=== PATIENT | male | born 1945 | race Caucasian/White ===

== ENCOUNTER 2021-07-02 09:22 | Inpatient (IN) | payer MEDICARE, OTHER, SELFPAY ==
[2021-07-02] VITALS (8 sets, daily range): BP systolic 125–172; BP diastolic 70–91; PULSE 57–80; RESP 16–20; TEMP 36.6–37.1; O2SAT 94–98; BMI 41.8; BMI 41.1
--- NOTE | 2021-07-02 | ECG_ITS ---
Test Reason : CP Blood Pressure : / mmHG Vent. Rate : 067 BPM Atrial Rate : 067 BPM P-R Int : 166 ms QRS Dur : 104 ms QT Int : 418 ms P-R-T Axes : -09 -37 011 degrees QTc Int : 441 ms Normal sinus rhythm with sinus arrhythmia Left axis deviation Abnormal ECG When compared with ECG of 09-APR-2018 14:01, No significant change was found Referred By: Generic ED Physician Electronically Signed By:Oswaldo Torres
--- NOTE | ~2021-07-02 | XR_ITS ---
EXAMINATION: XR CHEST CLINICAL INFORMATION: Chest pain COMPARISON: Previous chest x-ray April 2011 TECHNIQUE: 2 views of the chest were obtained. FINDINGS: The cardiac silhouette is slightly enlarged. The thoracic aorta appears tortuous and may be ectatic. Some of these changes may be exaggerated due to apical lordotic film technique. Hilar and mediastinal contours are otherwise unremarkable. The lungs are clear. There is no pleural effusion or pneumothorax. There are degenerative changes of the spine. XR/XR chest 2V IMPRESSION: Slightly enlarged cardiac silhouette and tortuous possibly ectatic thoracic aorta.
--- NOTE | ~2021-07-02 | CT_ITS ---
EXAMINATION: CTA CHEST PE STUDY CLINICAL INFORMATION: Reason for Exam elevated d dimer, cp, +dvt, r/o pe COMPARISON: No pertinent prior studies are available for comparison. TECHNIQUE: Prior to contrast administration, noncontrast localization images were obtained. After the administration of 50 mL of Omnipaque nonionic IV contrast, contiguous thin slice helical images were obtained through the thorax. Reformatted MIP images in the coronal and sagittal planes were obtained at the acquisition workstation. This CT examination was performed using dose optimization techniques as appropriate, variously including the following: *Automated exposure control *Adjustment of mA and/or kV according to patient size (this includes techniques or standardized protocols for targeted exams where dose is matched to indication/reason for exam; i.e. extremities or head) *Use of iterative reconstruction technique DLP: 492 mGy-cm. FINDINGS: The bolus timing on this study was acceptable for visualization of the pulmonary arterial tree. There is a focal filling defects seen within the posterior medial subsegmental pulmonary artery branches consistent with focal pulmonary emboli. No other definitive emboli are seen. Mosaic perfusion enhancement with linear atelectasis in the left lower lobe calcified granuloma. No abnormal pulmonary nodules or masses are appreciated. No significant hilar or mediastinal adenopathy. There is no evidence of pleural effusion or pneumothorax. The heart is normal in size. No evidence of ventricular septal bowing or right heart strain. Vascular calcification within the aorta. Small hiatal hernia.. There is no pericardial effusion or pericardial thickening. Limited evaluation of the upper abdominal viscera is unremarkable. CT/CT angio chest PE protocol IMPRESSION: Filling defects seen within posterior and medial subsegmental left lower lobe pulmonary artery branches consistent with pulmonary emboli. VTE: Positive This critical result was discussed with Sonia Hwang NP at 07/02/2021 6:04 PM and it was ascertained that the content and urgency of the report was understood at the time of direct communication.
--- NOTE | ~2021-07-02 | US_ITS ---
EXAMINATION: US VENOUS ULTRASOUND WITH DOPPLER LOWER EXTREMITY, BILATERAL CLINICAL INFORMATION: Lower extremity cramping, pain, elevated D-dimer. COMPARISON: None TECHNIQUE: Ultrasound of the deep veins is performed from the hip to the calf with compression sonography and color and pulse Doppler assessment. Spectral analysis with color-flow imaging is performed. FINDINGS: RIGHT: There is normal venous compression and respiratory variation and augmented flow. The visualized common femoral vein, superficial femoral vein, profunda femoral vein, popliteal vein, and the trifurcation region shows no evidence of deep venous thrombosis. There is no significant popliteal fossa cyst. There are a few nondistended lymph nodes seen. LEFT: There is normal venous compression and respiratory variation and augmented flow. There are chronic changes in the proximal left greater saphenous vein. The visualized common femoral vein, superficial femoral vein, profunda femoral vein, popliteal vein, and the trifurcation region shows no evidence of deep venous thrombosis. Normal flow and compression seen in the left posterior tibial vein.There is absent flow with noncompression of peroneal vein. There is no significant popliteal fossa cyst. A few scattered lymph nodes are seen in the left groin. If the patient's symptoms persist, follow-up ultrasound in 5 days 7 days might be of value to exclude proximal propagation from a nonvisualized calf vein. US/US venous duplex LE IMPRESSION: No DVT demonstrated in the right lower extremity. Acute DVT left peroneal vein. 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 Rest of the left lower extremity is unremarkable. There are small bilateral lymph nodes in the groin.
[2021-07-02 11:44] LABS: MANUAL DIFF FLAG NO
--- NOTE | 2021-07-02 11:44 | ED.GENADULT ---
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 Patient tells me that due to this his p.o. intake has been decreased. He denies any associated nausea, vomiting, diarrhea, constipation, urinary symptoms, shortness of breath, cough, fevers, chills. His last BM was this morning and normal. He tells me that for 2 days he has had lower leg cramping as well as cramping in his left upper extremity. He feels like the muscles are sore. He denies any injury or trauma. He denies any leg swelling. No history of blood clots. No recent travel or sick contact. He has been vaccinated for COVID Related Data Home Medications Medication Instructions Recorded Confirmed aspirin 81 mg tablet,delayed 1 tab PO QPM 07/02/21 07/02/21 release glipizide 5 mg tablet, extended 1 tab PO DAILY 07/02/21 07/02/21 release 24 hr lisinopril 20 mg tablet 1 tab PO QPM 07/02/21 07/02/21 metformin 1,000 mg tablet 1 tab PO BID 07/02/21 07/02/21 pioglitazone 45 mg tablet 1 tab PO QAM 07/02/21 07/02/21 simvastatin 40 mg tablet 1 tab PO QPM 07/02/21 07/02/21 Allergies Allergy/AdvReac Type Severity Reaction Status Date / Time No Known Allergies Allergy Mild N/A Verified 07/02/21 09:47 Review of Systems Review of Systems: Yes all other systems are reviewed and are negative Constitutional: Constitutional: Reports no additional constitutional complaints, Denies body ache(s), Denies chills, Denies fever(s), Denies headache(s) and Denies weakness Comments: Muscle cramps Eyes: Eyes: Reports no additional eye complaints and Denies change in vision ENT: Reports system reviewed and no additional complaints, except as documented, Denies dizziness, Denies headache(s), Denies nasal congestion, Denies nasal discharge and Denies neck pain Cardiovascular: Cardiovascular: Reports no additional cardiovascular complaints, Reports chest pain, Denies leg edema and Denies dyspnea Respiratory: Respiratory: Reports no additional respiratory complaints, Denies cough and Denies dyspnea Gastrointestinal: Gastrointestinal: Reports no additional gastrointestinal complaints, Reports abdominal pain, Denies diarrhea, Denies nausea and Denies vomiting Genitourinary: Genitourinary: Denies urinary incontinence Musculoskeletal: Musculoskeletal: Reports no additional musculoskeletal complaints, Denies back pain, Denies arthralgias, Denies joint swelling, Denies neck pain, Denies numbness and Denies tingling Integumentary/Breasts: Skin/Breast: Reports system reviewed and no additional complaints, except as docu and Denies rash Neurologic: Reports system reviewed and no additional complaints, except as documented, Denies Abnormal speech present, Denies dizziness, Denies headache(s), Denies numbness, Denies tingling and Denies weakness PMFSH Past Medical History Attestation statement: The following information was validated with the patient. Source: old records reviewed and nursing notes reviewed Medical History (Updated 07/02/21 @ 19:05 by Grecia Chatterjee NP) Diabetes High cholesterol Hypertension Social History Social History Alcohol intake: former Patient Tobacco Use Status: Never used Tobacco Use of substances other than those prescribed or required for medical reasons: No Advance Directives: Yes Advance Directives Information Provided: Yes Advance Directives on File: No Physical Exam Vital Signs: Vital Signs: Last Vital Signs Temp 98.0 F 07/02/21 16:00 Pulse 60 07/02/21 18:22 Resp 16 07/02/21 18:22 BP 149/82 H 07/02/21 18:22 Pulse Ox 95 07/02/21 18:22 Body Mass Index 41.8 Const: General: cooperative, healthy appearing, comfortable and no acute distress Orientation/consciousness: patient oriented x3 Limitations: no limitations HENMT: Head: Yes normal to inspection Ears: hearing grossly normal bilaterally and TM's normal bilaterally General nose exam: Normal external nose present Face and sinus: Yes normal facial exam Mouth: Normal oral and palatal mucosa present Throat: Yes posterior oropharynx normal, Yes tonsils normal and Yes uvula midline Eyes: General: appearance normal, both eyes and all related structures Pupils: Equal, round and reactive pupils present Neck: Neck: Yes normal visual inspection Chest: Chest palpation & inspection: normal inspection of the chest Resp: Effort & Inspection: normal respiratory effort Auscultation: clear to auscultation bilaterally Cardio: Rate: regular rate Rhythm: regular rhythm Peripheral pulses: Peripheral pulses 2+ throughout GI: Inspection: Yes normal to inspection Palpation (GI): Soft to palpation and Tenderness to palpation present (GI) (Epigastric is mildly tender no rebound or guarding) Auscultation: normal bowel sounds Back/Spine/Pelvis: Thoracic/Lumbar Spine: thoracic and lumbar spine normal to inspection Skin: General skin exam: no rashes or lesions noted Neuro: General: patient oriented x3, no focal motor deficits and normal sensation to monofilament Cranial nerves: Yes Equal, round and reactive pupils present, Yes Bilaterally intact EOM present, Yes Nystagmus not present, Yes Normal facial strength present and Yes Midline tongue present Cognition (Neuro): normal cognition Speech: No Abnormal speech present Gait exam (Neuro): Normal gait present Motor exam (neuro): 5/5 motor strength present throughout Sensory Exam: Normal double simultaneous stimulation for sensation Extrem: Other: Tenderness to both bilateral calves with no swelling or erythema. Palpable distal pulses noted. Tenderness to the left upper extremity entirely over the forearm and shoulder and upper arm with full range of motion no swelling or erythema. Palpable distal pulses noted General: Yes normal to inspection and Yes no pedal edema Course Course Course Narrative: 75-year-old male here with complaints of intermittent upper abdominal pain which radiates to this chest described as burning for the last few weeks which occurs after eating. He also reports a decreased p.o. intake secondary to pain. Now for the last few days having muscle aching and cramping and his lower extremities and left upper extremity. Hemodynamically stable. Normal neuro exam. Mildly tender in the epigastric with no rebound or guarding. Will check labs, EKG, UA, chest x-ray, covid screen 1240-Elevated D dimer >1000. Will check LE US to r/o DVT 1657-multiple attempts to reach Radiology to get a report from the patient's ultrasound. Finally and ultrasound report confirms an acute DVT. Patient will need CTA to rule out underlying PE. 1829-CT is concerning for acute pulmonary embolism. No evidence of saddle pulmonary embolism. No evidence of right heart strain. Patient is hemodynamically stable. Discussed with Dr. Mohan attending physician. Plan for Lovenox 1mg/kg SQ. Will need admission. 1944-discussed with Dr. Hairston who accepted patient Medical Decision Making MDM Narrative Medical decision making narrative: Rhabdomyolysis, electrolyte abnormality, ACS, GERD, cholecystitis Medical Records Medical records reviewed: Yes I reviewed the patient's medical records. Lab Data Lab results reviewed: Yes I reviewed the patient's lab results. Result diagrams: 07/02/21 11:39 07/02/21 12:13 Labs: Lab Results 07/02/21 07/02/21 07/02/21 Range/Units 11:39 11:39 11:39 WBC 6.6 (4.8-10.8) X10*3/uL RBC 4.39 L (4.60-5.80) X10*6/uL Hgb 11.9 L (14.0-18.0) g/dl Hct 37.7 L (42-52) % MCV 85.9 (80-98) fL MCH 27.1 (27.0-33.0) pg MCHC 31.6 (31.0-36.0) g/dl RDW 14.6 (11.0-16.0) % Plt Count 174 (160-400) X10*3/uL MPV 11.3 (9.4-12.4) fL Immature Gran % (Auto) 0.2 (0.0-0.4) % Neut % (Auto) 62.5 (45-73) % Lymph % (Auto) 26.7 (20-40) % [place] % (Auto) 7.9 (2-11) % Eos % (Auto) 2.1 (0-4) % Baso % (Auto) 0.6 (0-2) % Lymph # (Auto) 1.8 (1.2-4.9) X10*3/uL [place] # (Auto) 0.5 (0.1-1.2) X10*3/uL Eos # (Auto) 0.1 (0.0-0.4) X10*3/uL Baso # (Auto) 0.0 (0.0-0.2) X10*3/uL Abs Immat Gran (auto) 0.01 (0.00-0.03) X10*3/uL Absolute Neuts (auto) 4.1 (2.0-8.3) X10*3/uL Absolute Nucleated RBC 0.000 (0.0-0.012) X10*3/uL Nucleated RBC % (auto) 0.0 (0.0-0.2) /100WBC PT (9.9-13.0) SEC INR (0.9-1.1) D-Dimer NG/ML Sodium (135-145) mmol/L Potassium (3.3-5.1) mmol/L Chloride (96-108) mmol/L Carbon Dioxide (22-29) mmol/L Anion Gap (12-20) BUN (9-16) mg/dL Creatinine (0.5-1.4) mg/dL Estim Creat Clear Calc Estimated GFR Random Glucose (60-115) mg/dL Calcium (8.4-10.2) mg/dL Magnesium (1.6-2.6) mg/dL Total Bilirubin (0.0-1.0) mg/dL Direct Bilirubin (0.0-0.5) mg/dL AST (5-37) U/L ALT (0-40) U/L Alkaline Phosphatase (39-117) U/L Total Creatine Kinase (38-174) U/L Troponin I High Sens 3.6 (<3.5-35.0) ng/L B-Natriuretic Peptide 19 (<100) pg/mL Total Protein (6.5-8.0) g/dL Albumin (3.5-5.0) g/dL Lipase (8-78) U/L Urine Color Urine Appearance Urine pH (5.0-8.0) Ur Specific [place] (1.005-1.025) Urine Protein (NEG-TRACE) MG/DL Urine Glucose (UA) (NEG) MG/DL Urine Ketones (NEG) MG/DL Urine Blood (NEG) Urine Nitrite (NEG) Ur Leukocyte Esterase (NEG) Coronavirus (PCR) NEGATIVE (Negative) Influenza Type A (PCR) NEGATIVE (Negative) Influenza Type B (PCR) NEGATIVE (Negative) RSV RNA Qual (PCR) NEGATIVE (Negative) 07/02/21 07/02/21 07/02/21 Range/Units 11:51 12:13 12:13 WBC (4.8-10.8) X10*3/uL RBC (4.60-5.80) X10*6/uL Hgb (14.0-18.0) g/dl Hct (42-52) % MCV (80-98) fL MCH (27.0-33.0) pg MCHC (31.0-36.0) g/dl RDW (11.0-16.0) % Plt Count (160-400) X10*3/uL MPV (9.4-12.4) fL Immature Gran % (Auto) (0.0-0.4) % Neut % (Auto) (45-73) % Lymph % (Auto) (20-40) % [place] % (Auto) (2-11) % Eos % (Auto) (0-4) % Baso % (Auto) (0-2) % Lymph # (Auto) (1.2-4.9) X10*3/uL [place] # (Auto) (0.1-1.2) X10*3/uL Eos # (Auto) (0.0-0.4) X10*3/uL Baso # (Auto) (0.0-0.2) X10*3/uL Abs Immat Gran (auto) (0.00-0.03) X10*3/uL Absolute Neuts (auto) (2.0-8.3) X10*3/uL Absolute Nucleated RBC (0.0-0.012) X10*3/uL Nucleated RBC % (auto) (0.0-0.2) /100WBC PT 11.4 (9.9-13.0) SEC INR 1.0 (0.9-1.1) D-Dimer 1021 NG/ML Sodium 136 (135-145) mmol/L Potassium 4.2 (3.3-5.1) mmol/L Chloride 104 (96-108) mmol/L Carbon Dioxide 25 (22-29) mmol/L Anion Gap 11 L (12-20) BUN 20 H (9-16) mg/dL Creatinine 0.86 (0.5-1.4) mg/dL Estim Creat Clear Calc 85.0 Estimated GFR > 60 Random Glucose 103 (60-115) mg/dL Calcium 9.0 (8.4-10.2) mg/dL Magnesium 1.8 (1.6-2.6) mg/dL Total Bilirubin 0.6 (0.0-1.0) mg/dL Direct Bilirubin 0.3 (0.0-0.5) mg/dL AST 17 (5-37) U/L ALT 8 (0-40) U/L Alkaline Phosphatase 93 (39-117) U/L Total Creatine Kinase 152 (38-174) U/L Troponin I High Sens (<3.5-35.0) ng/L B-Natriuretic Peptide (<100) pg/mL Total Protein 6.5 (6.5-8.0) g/dL Albumin 3.6 (3.5-5.0) g/dL Lipase 14 (8-78) U/L Urine Color YELLOW Urine Appearance CLEAR Urine pH 6.0 (5.0-8.0) Ur Specific [place] 1.025 (1.005-1.025) Urine Protein NEG (NEG-TRACE) MG/DL Urine Glucose (UA) NEG (NEG) MG/DL Urine Ketones NEG (NEG) MG/DL Urine Blood NEG (NEG) Urine Nitrite NEG (NEG) Ur Leukocyte Esterase NEG (NEG) Coronavirus (PCR) (Negative) Influenza Type A (PCR) (Negative) Influenza Type B (PCR) (Negative) RSV RNA Qual (PCR) (Negative) Imaging Data Chest x-ray: Attestation: I personally reviewed and interpreted this imaging study as follows: Radiologist's impression: EXAMINATION: XR CHEST CLINICAL INFORMATION: Chest pain COMPARISON: Previous chest x-ray April 2011 TECHNIQUE: 2 views of the chest were obtained. FINDINGS: The cardiac silhouette is slightly enlarged. The thoracic aorta appears tortuous and may be ectatic. Some of these changes may be exaggerated due to apical lordotic film technique. Hilar and mediastinal contours are otherwise unremarkable. The lungs are clear. There is no pleural effusion or pneumothorax. There are degenerative changes of the spine. XR/XR chest 2V IMPRESSION: Slightly enlarged cardiac silhouette and tortuous possibly ectatic thoracic aorta. Venous US: Attestation: I personally reviewed and interpreted this imaging study as follows: Radiologist's impression: IMPRESSION: No DVT demonstrated in the right lower extremity. ? Acute DVT left peroneal vein. 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 Rest of the left lower extremity is unremarkable. ? There are small bilateral lymph nodes in the groin. CT scan - chest: Attestation: I personally reviewed and interpreted this imaging study as follows: Radiologist's impression: [id number] [place] [address] CT Scan Report Signed Patient: Chuy Noble MR#: [id number] : 1945 Acct:[id number] Age/Sex: 75 / M ADM Date: 07/02/21 Loc: [facility].ED Attending Dr: Ordering Physician: GRECIA CHATTERJEE NP Date of Service: 07/02/21 Procedure(s): CT angio chest PE protocol Accession Number(s): [id number] cc: GRECIA CHATTERJEE NP~ EXAMINATION: CTA CHEST PE STUDY CLINICAL INFORMATION: Reason for Exam elevated d dimer, cp, +dvt, r/o pe COMPARISON: No pertinent prior studies are available for comparison.? TECHNIQUE: Prior to contrast administration, noncontrast localization images were obtained. After the administration of 50 mL of Omnipaque nonionic? IV contrast, contiguous thin slice helical images were obtained through the thorax. Reformatted MIP images in the coronal and sagittal planes were obtained at the acquisition workstation. This CT examination was performed using dose optimization techniques as appropriate, variously including the following: *Automated exposure control *Adjustment of mA and/or kV according to patient size (this includes techniques or standardized protocols for targeted exams where dose is matched to indication/reason for exam; i.e. extremities or head) *Use of iterative reconstruction technique DLP: 492 mGy-cm. FINDINGS: The bolus timing on this study was acceptable for visualization of the pulmonary arterial tree. There is a focal filling defects seen within the posterior medial subsegmental pulmonary artery branches consistent with focal pulmonary emboli. No other definitive emboli are seen. Mosaic perfusion enhancement with linear atelectasis in the left lower lobe calcified granuloma. No abnormal pulmonary nodules or masses are appreciated. No significant hilar or mediastinal adenopathy.? There is no evidence of pleural effusion or pneumothorax. The heart is normal in size. No evidence of ventricular septal bowing or right heart strain. Vascular calcification within the aorta. Small hiatal hernia..? There is no pericardial effusion or pericardial thickening. Limited evaluation of the upper abdominal viscera is unremarkable. ECG Data Attestation: I personally reviewed and interpreted this ECG as follows: Interpretation: Normal sinus rhythm with a sinus arrhythmia with a rate of 67, normal IL, normal QRS, QTC 441 Discharge Plan Discharge Clinical Impression: Pulmonary embolism on left, DVT (deep venous thrombosis) Patient Disposition: Admitted As Inpatient
[2021-07-02 11:53] LABS: Basophils Percent Auto 0.6 % (0-2); Eosinophils Absolute Auto 0.1 X10*3/uL (0.0-0.4); Eosinophils Percent Auto 2.1 % (0-4); Hematocrit 37.7 % (42-52); Hemoglobin 11.9 g/dl (14.0-18.0); Imm Gran Abs Auto 0.01 X10*3/uL (0.00-0.03); Imm Gran Pct Auto 0.2 % (0.0-0.4); Lymphocytes Absolute Auto 1.8 X10*3/uL (1.2-4.9); Lymphocytes Percent Auto 26.7 % (20-40); Mean Corpuscular HGB Conc 31.6 g/dl (31.0-36.0); Mean Corpuscular Hemoglobin 27.1 pg (27.0-33.0); Mean Corpuscular Volume 85.9 fL (80-98); Mean Platelet Volume 11.3 fL (9.4-12.4); Monocytes Absolute Auto 0.5 X10*3/uL (0.1-1.2); Monocytes Percent Auto 7.9 % (2-11); Neutrophils Absolute Auto 4.1 X10*3/uL (2.0-8.3); Neutrophils Percent Auto 62.5 % (45-73); Platelet Count 174 X10*3/uL (160-400); Red Blood Count 4.39 X10*6/uL (4.60-5.80); Red Cell Distribution Width 14.6 % (11.0-16.0); White Blood Count 6.6 X10*3/uL (4.8-10.8)
--- NOTE | 2021-07-02 12:00 | PC.NURSE ---
Pt reports chest pain and abd pain x 2 days. also reports leg cramping. Pain worse with eating but no pain at present. Skin pink warm and dry. sinus dixon on tele. at bedside. Last BM today. IV established and labs sent. Breathing equal and unlabored. neuros are intact. speech is clear.
[2021-07-02 12:05] LABS: Glucose Urine UA NEG (NEG); Leukocyte Esterase Urine NEG (NEG); Nitrite Urine NEG (NEG); Specific Gravity - Urine 1.025 (1.005-1.025); Urine Blood NEG (NEG); Urine Ketones NEG (NEG); Urine Protein NEG (NEG-TRACE)
[2021-07-02 12:07] LABS: Appearance Urine CLEAR; Color Urine YELLOW
[2021-07-02 12:24] LABS: Troponin-I High Sensitivity 3.6 ng/L (<3.5-35.0)
[2021-07-02 12:31] LABS: D Dimer 1021 NG/ML
[2021-07-02 12:48] LABS: Alanine Aminotransferase 8 U/L (0-40); Albumin Level 3.6 g/dL (3.5-5.0); Alkaline Phosphatase 93 U/L (39-117); Anion Gap 11 (12-20); Aspartate Amino Transferase 17 U/L (5-37); Bilirubin Direct 0.3 mg/dL (0.0-0.5); Bilirubin Total 0.6 mg/dL (0.0-1.0); Blood Urea Nitrogen 20 mg/dL (9-16); Carbon Dioxide 25 mmol/L (22-29); Chloride 104 mmol/L (96-108); Estimated Glomerular Filt Rate > 60; Glucose Random 103 mg/dL (60-115); Lipase 14 U/L (8-78); Magnesium 1.8 mg/dL (1.6-2.6); Potassium 4.2 mmol/L (3.3-5.1); Sodium 136 mmol/L (135-145); Total Protein 6.5 g/dL (6.5-8.0)
[2021-07-02 13:13] LABS: Prothrombin Time 11.4 SEC (9.9-13.0)
[2021-07-02 13:22] LABS: Influenza A PCR NEGATIVE (Negative); Influenza B PCR NEGATIVE (Negative); Resp Syncy Virus RNA Qual PCR NEGATIVE (Negative); SARS COV2 PCR INHOUSE NEGATIVE (Negative)
[2021-07-02 13:37] LABS: B Type Natriuretic Peptide 19 pg/mL (<100)
[2021-07-02] MEDS: Magnesium Hydrox/Alum Hydrox 30 ML ORAL.SUSP PO (14:34)
[2021-07-02] MEDS: Lidocaine HCl Viscous 2 % 15 ML SOLUTION MUCOUS MEM (14:34)
--- NOTE | 2021-07-02 14:36 | PC.NURSE ---
pt resting quietly, denies pain at this time. Medicated as charted
[2021-07-02] MEDS: iohexoL 350 MG/ML 100 ML INFUS..BTL IV (17:50)
[2021-07-02] MEDS: Enoxaparin Sodium 100 MG/ML SYRINGE 110 MG SUBCUT (18:26)
--- NOTE | 2021-07-02 18:27 | PC.NURSE ---
Placed on 2lpm via nc, sat 94-96% on RA, pt denies pain or SOB at this tie. medicated as charted. Plan for admission. NSR on tele
--- NOTE | 2021-07-02 18:45 | PC.NURSE ---
PER Mando MARQUEZ new order for coags at 1830 not to be drawn
--- NOTE | 2021-07-02 20:20 | PM.IMHP ---
History of Present Illness Date of Service: 07/02/21 Chief Complaint: Chest discomfort 75-year-old male with a past medical history of hypertension, hyperlipidemia, diabetes presented to the hospital with a chief complaint of abdominal discomfort. Patient reported that the past days he has been having abdominal discomfort assist with nausea; also complains of chest discomfort; attributes to possible chest discomfort. Complains of mild shortness of breath. Denies any fever chills cough. Denies any palpitations, lightheadedness or dizziness. Patient also complains bilateral leg cramps going on for past few days. Denies any numbness tingling. Denies any GI or symptoms. Review of all other systems is negative except mentioned above ER course: Per ER team patient exam was fairly benign; lung exam was clear; patient by venous duplex of the bilateral lower extremities showed left leg acute DVT in the peroneal vein; CT chest showed left lower lobe pulmonary embolism; patient given Lovenox admitted to the hospital further management PMFSH Medical History (Updated 07/03/21 @ 14:08 by Jake Rivera MD) Diabetes High cholesterol Hypertension Social History Household Members: Spouse Housing: House Do you presently have visiting nurse or other home services: No Alcohol intake: former Patient Tobacco Use Status: Never used Tobacco Use of substances other than those prescribed or required for medical reasons: No Currently Displaying Signs/Symptoms of Drug Intoxication Withdrawal: No Have you been hit, kicked, punched, or otherwise hurt by someone within the past year? If so, by whom?: No Do you feel safe in your current relationship?: Yes Is there a partner from a previous relationship who is making you feel unsafe now?: No Are you made to feel afraid or neglected: No Advance Directives: Yes Advance Directives Information Provided: Yes Advance Directives on File: No Advance Directives Date on File: 07/02/21 Do you have thoughts of harming others: None Do you have a plan to hurt others: No Plan Recently lost weight without trying: Unsure Eating poorly because of decreased appetite: No Nutrition Risks: No Nutritional Risk Poor oral hygiene: No Current occupational status: retired Meds Allergies Allergy/AdvReac Type Severity Reaction Status Date / Time No Known Allergies Allergy Mild N/A Verified 07/02/21 09:47 Active Medications: Current Medications Generic Name Dose Route Start Last Admin Trade Name Jamie PRN Reason Stop Dose Admin Acetaminophen 650 mg 07/02/21 20:15 Acetaminophen 325 Mg Tablet PO Q6H PRN Pain, Mild (Pain Scale 1-3) Albuterol/Ipratropium 3 ml 07/02/21 20:15 Albuterol/Iprat 2.5/0.5mg 3 Ml Ampul.Neb INHALE RQ4H PRN Shortness of Breath/Wheezing Aspirin 81 mg 07/02/21 20:30 Aspirin Enteric Coated 81 Mg Tablet.Dr PO QPM [facility] Dextrose 25 gm 07/02/21 20:15 Dextrose 50 % 25 Gm/50 Ml Vial IVPUSH Q15M PRN per Hypoglycemia Standing Ord. Protocol Enoxaparin Sodium 110 mg 07/02/21 21:00 Enoxaparin Sodium 120 Mg/0.8 Ml Syringe 1 mg/kg (110 mg) SUBCUT Q12H [facility] Famotidine 20 mg 07/02/21 21:00 Famotidine 20 Mg Tablet PO BID [facility] Glucose 15 gm 07/02/21 20:15 Glucose Gel 15 Gm Gel..Gram. PO Q15M PRN per Hypoglycemia Standing Ord. Protocol Insulin Human Lispro 0 unit 07/02/21 21:00 Insulin Lispro 100 Unit/Ml 3 Ml Vial SUBCUT QIDAS [facility] Protocol Lisinopril 20 mg 07/02/21 21:00 Lisinopril 20 Mg Tablet PO QPM [facility] Protocol Melatonin 6 mg 07/02/21 20:15 Melatonin 3 Mg Tablet PO BEDTIME PRN Insomnia Non-Formulary Medication 1 tab 07/02/21 20:30 Simvastatin PO QPM [facility] Oxycodone HCl 5 mg 07/02/21 20:15 Oxycodone Hcl Immed Release 5 Mg Tablet PO Q6H PRN Pain, Severe (Pain Scale 7-10) Pharmacy Consult 1 each 07/02/21 18:04 Consult Rx Perform Med Rec MISCELLANE ONCE PRN Consult order Sodium Chloride 3 ml 07/03/21 00:00 0.9 % Sodium Chloride Flush 3 Ml Syringe IVFLUSH QSHIFT [facility] Home Medications Medication Instructions Recorded Confirmed Last Taken Type aspirin 81 mg tablet,delayed 1 tab PO QPM 07/02/21 07/02/21 07/01/21 History release glipizide 5 mg tablet, extended 1 tab PO DAILY 07/02/21 07/02/21 07/01/21 History release 24 hr lisinopril 20 mg tablet 1 tab PO QPM 07/02/21 07/02/21 07/01/21 History metformin 1,000 mg tablet 1 tab PO BID 07/02/21 07/02/21 07/01/21 History pioglitazone 45 mg tablet 1 tab PO QAM 07/02/21 07/02/21 07/01/21 History simvastatin 40 mg tablet 1 tab PO QPM 07/02/21 07/02/21 Unknown History Physical Exam Vital Signs and Narrative: Vital Signs: Last Vital Signs Temp 98.0 F 07/02/21 16:00 Pulse 60 07/02/21 18:22 Resp 16 07/02/21 18:22 BP 149/82 H 07/02/21 18:22 Pulse Ox 95 07/02/21 18:22 Body Mass Index 41.8 Gen: Appears be in no acute distress HEENT: NCAT, Moist mucosa. Pulmonary: Vesicular breath sounds, fair air entry CVS: Normal S1-S2 Abdomen: BS+, Soft, Nontender Extremities: Warm well perfused Neuro: Alert and awake. Results Labs CBC and Chem 7: 07/04/21 05:17 07/04/21 05:17 Labs: Laboratory Results - last 24 hr 07/02/21 07/02/21 07/02/21 11:39 11:39 11:39 MCV 85.9 MCH 27.1 MCHC 31.6 RDW 14.6 Plt Count 174 MPV 11.3 Immature Gran % (Auto) 0.2 Neut % (Auto) 62.5 Lymph % (Auto) 26.7 [place] % (Auto) 7.9 Eos % (Auto) 2.1 Baso % (Auto) 0.6 Lymph # (Auto) 1.8 [place] # (Auto) 0.5 Eos # (Auto) 0.1 Baso # (Auto) 0.0 Abs Immat Gran (auto) 0.01 Absolute Neuts (auto) 4.1 Absolute Nucleated RBC 0.000 Nucleated RBC % (auto) 0.0 PT INR D-Dimer Anion Gap Estim Creat Clear Calc Estimated GFR Random Glucose Calcium Magnesium Total Bilirubin Direct Bilirubin AST ALT Alkaline Phosphatase Total Creatine Kinase Troponin I High Sens 3.6 B-Natriuretic Peptide 19 Total Protein Albumin Lipase Urine Color Urine Appearance Urine pH Ur Specific [place] Urine Protein Urine Glucose (UA) Urine Ketones Urine Blood Urine Nitrite Ur Leukocyte Esterase Coronavirus (PCR) NEGATIVE Influenza Type A (PCR) NEGATIVE Influenza Type B (PCR) NEGATIVE RSV RNA Qual (PCR) NEGATIVE 07/02/21 07/02/21 07/02/21 11:51 12:13 12:13 MCV MCH MCHC RDW Plt Count MPV Immature Gran % (Auto) Neut % (Auto) Lymph % (Auto) [place] % (Auto) Eos % (Auto) Baso % (Auto) Lymph # (Auto) [place] # (Auto) Eos # (Auto) Baso # (Auto) Abs Immat Gran (auto) Absolute Neuts (auto) Absolute Nucleated RBC Nucleated RBC % (auto) PT 11.4 INR 1.0 D-Dimer 1021 Anion Gap 11 L Estim Creat Clear Calc 85.0 Estimated GFR > 60 Random Glucose 103 Calcium 9.0 Magnesium 1.8 Total Bilirubin 0.6 Direct Bilirubin 0.3 AST 17 ALT 8 Alkaline Phosphatase 93 Total Creatine Kinase 152 Troponin I High Sens B-Natriuretic Peptide Total Protein 6.5 Albumin 3.6 Lipase 14 Urine Color YELLOW Urine Appearance CLEAR Urine pH 6.0 Ur Specific [place] 1.025 Urine Protein NEG Urine Glucose (UA) NEG Urine Ketones NEG Urine Blood NEG Urine Nitrite NEG Ur Leukocyte Esterase NEG Coronavirus (PCR) Influenza Type A (PCR) Influenza Type B (PCR) RSV RNA Qual (PCR) Imaging Radiologist's Impressions: Impressions Chest X-Ray 07/02/21 11:26 IMPRESSION: Slightly enlarged cardiac silhouette and tortuous possibly ectatic thoracic aorta. Venous Duplex 07/02/21 12:36 IMPRESSION: No DVT demonstrated in the right lower extremity. Acute DVT left peroneal vein. 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 Rest of the left lower extremity is unremarkable. There are small bilateral lymph nodes in the groin. Chest CTA 07/02/21 17:08 IMPRESSION: Filling defects seen within posterior and medial subsegmental left lower lobe pulmonary artery branches consistent with pulmonary emboli. VTE: Positive This critical result was discussed with Sonia Hwang NP at 07/02/2021 6:04 PM and it was ascertained that the content and urgency of the report was understood at the time of direct communication. Assessment and Plan (1) DVT (deep venous thrombosis): Status: Acute 75-year-old male with a past medical history of hypertension, hyperlipidemia, diabetes presented to the hospital with a chief complaint of abdominal discomfort/chest discomfort/leg pain; noted to DVT/PE. Admitted to the for further management. Left lower extremity DVT/left lower lobe PE: Patient vitals are stable troponins negative; EKG showed no acute changes; no right strain mentioned on the CT scan. Telemetry Cycle cardiac enzymes Echocardiogram Continue Lovenox at therapeutic dose. Consult Hematology-Oncology for further recommendations. History of diabetes: Hold home oral hypoglycemic agents. Insulin sliding scale. Hx of hypertension/hyperlipidemia: Continue home lisinopril/ statin. GI prophylaxis: Pepcid DVT prophylaxis: Patient on Lovenox Code status: Full code Quality Stroke Does the patient have a stroke diagnosis?: No VTE Prior VTE?: Yes VTE Risk Level:: Medical - moderate - high VTE Device Contraindication: Treatment Not Indicated VTE Drug Contraindication: N/A - Med Ordered
[2021-07-02 20:21] LABS: Glucose, Whole Blood 117 mg/dL (60-115)
[2021-07-02] MEDS: Enoxaparin Sodium 120 MG/0.8 ML SYRINGE 110 MG SUBCUT (22:16)
[2021-07-02] MEDS: Famotidine 20 MG TABLET PO (22:19)
[2021-07-02] MEDS: Atorvastatin Calcium 20 MG TABLET PO (22:19)
[2021-07-02] MEDS: Aspirin Enteric Coated 81 MG TABLET.DR PO (22:19)
[2021-07-02 22:21] LABS: Glucose, Whole Blood 89 mg/dL (60-115)
[2021-07-02] MEDS: 0.9 % Sodium Chloride Flush 3 ML SYRINGE IVFLUSH (22:30)
[2021-07-02] MEDS: Acetaminophen 325 MG TABLET 650 MG PO (22:31)
[2021-07-03] VITALS (7 sets, daily range): BP systolic 124–146; BP diastolic 62–87; PULSE 56–86; RESP 16–20; TEMP 36.6–37.4; O2SAT 94–96; BMI 41.0
[2021-07-03 06:31] LABS: MANUAL DIFF FLAG NO
[2021-07-03 06:50] LABS: Basophils Percent Auto 0.5 % (0-2); Eosinophils Absolute Auto 0.2 X10*3/uL (0.0-0.4); Hematocrit 37.7 % (42-52); Hemoglobin 12.1 g/dl (14.0-18.0); Imm Gran Abs Auto 0.01 X10*3/uL (0.00-0.03); Imm Gran Pct Auto 0.2 % (0.0-0.4); Lymphocytes Absolute Auto 1.5 X10*3/uL (1.2-4.9); Lymphocytes Percent Auto 27.5 % (20-40); Mean Corpuscular HGB Conc 32.1 g/dl (31.0-36.0); Mean Corpuscular Hemoglobin 27.5 pg (27.0-33.0); Mean Corpuscular Volume 85.7 fL (80-98); Mean Platelet Volume 11.8 fL (9.4-12.4); Monocytes Absolute Auto 0.5 X10*3/uL (0.1-1.2); Monocytes Percent Auto 8.6 % (2-11); Neutrophils Absolute Auto 3.4 X10*3/uL (2.0-8.3); Neutrophils Percent Auto 60.2 % (45-73); Platelet Count 171 X10*3/uL (160-400); Red Cell Distribution Width 14.6 % (11.0-16.0); White Blood Count 5.6 X10*3/uL (4.8-10.8)
[2021-07-03 07:21] LABS: Anion Gap 15 (12-20); Blood Urea Nitrogen 16 mg/dL (9-16); Calcium 8.9 mg/dL (8.4-10.2); Carbon Dioxide 23 mmol/L (22-29); Chloride 106 mmol/L (96-108); Creatinine Clr Calc Pharmacy 90.4; Estimated Glomerular Filt Rate > 60; Glucose Random 103 mg/dL (60-115); Potassium 4.6 mmol/L (3.3-5.1); Sodium 139 mmol/L (135-145)
[2021-07-03 07:23] LABS: Magnesium 1.9 mg/dL (1.6-2.6)
[2021-07-03 07:31] LABS: Glucose, Whole Blood 125 mg/dL (60-115)
[2021-07-03] MEDS: Enoxaparin Sodium 120 MG/0.8 ML SYRINGE 110 MG SUBCUT ×2 (08:56→22:09)
[2021-07-03] MEDS: Famotidine 20 MG TABLET PO ×2 (08:56→22:10)
[2021-07-03] MEDS: Acetaminophen 325 MG TABLET 650 MG PO (08:57)
[2021-07-03] MEDS: 0.9 % Sodium Chloride Flush 3 ML SYRINGE IVFLUSH ×3 (09:02→22:11)
[2021-07-03 11:08] LABS: Glucose, Whole Blood 169 mg/dL (60-115)
[2021-07-03] MEDS: Insulin Lispro 100 UNIT/ML 3 ML VIAL SUBCUT ×2 (11:51→16:22)
--- NOTE | 2021-07-03 14:02 | PM.HEMONCCN ---
Subjective - Subjective Chief complaint: DVT left peroneal/PE lllobe Patient: new to practice Consult date: 07/03/21 Primary Care Provider: Eleazar James MD HPI - Consult Narrative Reason for consult: PE Narrative: Chuy Noble is a 75 year old male 75 year old man with acute and chronic dvt in left leg and pulmonary emboli left lower lobe now on enoxaparen. No prior history of clotting or bleeding. Review of Systems - Constitutional Reports weakness - Eyes Reports other - ENT Reports other - Cardiovascular Reports chest pain - Respiratory Reports cough - Gastrointestinal Reports dyspepsia - Genitourinary Genitourinary: Reports urinary frequency - Musculoskeletal Reports other - Neurologic Reports system reviewed and no additional complaints, except as documented, Denies abnormal speech, Denies headache(s), Denies numbness, Denies tingling, Denies weakness PMFSH Medical History: Medical History (Last Reviewed 07/02/21 @ 22:08 by Cierra Farris RN) Diabetes High cholesterol Hypertension Social History: Social History (Last Reviewed 07/02/21 @ 11:46 by Sonia Hwang NP) Living Situation History: Household Members: Spouse Housing: House Do you presently have visiting nurse or other home services: No Alcohol History: Alcohol intake: former Tobacco History: Patient Tobacco Use Status: Never used Tobacco Substance Use History: Use of substances other than those prescribed or required for medical reasons: No Currently Displaying Signs/Symptoms of Drug Intoxication Withdrawal: No Domestic Abuse History: Have you been hit, kicked, punched, or otherwise hurt by someone within the past year? If so, by whom?: No Do you feel safe in your current relationship?: Yes Is there a partner from a previous relationship who is making you feel unsafe now?: No Are you made to feel afraid or neglected: No Advance Directives: Advance Directives: Yes Advance Directives Information Provided: Yes Advance Directives on File: No Advance Directives Date on File: 07/02/21 Homicidal Assessment: Do you have thoughts of harming others: None Do you have a plan to hurt others: No Plan Nutrition Assessment: Recently lost weight without trying: Unsure Eating poorly because of decreased appetite: No Nutrition Risks: No Nutritional Risk Poor oral hygiene: No Home Medications and Allergies Current Medications: Current Medications Generic Name Dose Route Start Last Admin Trade Name Freq PRN Reason Stop Dose Admin Acetaminophen 650 mg 07/02/21 20:15 07/03/21 08:57 Acetaminophen 325 Mg Tablet PO 650 mg Q6H PRN Administration Pain, Mild (Pain Scale 1-3) Albuterol/Ipratropium 3 ml 07/02/21 20:15 Albuterol/Iprat 2.5/0.5mg 3 Ml Ampul.Neb INHALE RQ4H PRN Shortness of Breath/Wheezing Aspirin 81 mg 07/02/21 21:00 07/02/21 22:19 Aspirin Enteric Coated 81 Mg Tablet. PO 81 mg BEDTIME YUKI Administration Atorvastatin Calcium 20 mg 07/02/21 21:00 07/02/21 22:19 Atorvastatin Calcium 20 Mg Tablet PO 20 mg BEDTIME YUKI Administration Dextrose 25 gm 07/02/21 20:15 Dextrose 50 % 25 Gm/50 Ml Vial IVPUSH Q15M PRN per Hypoglycemia Standing Ord. Protocol Enoxaparin Sodium 110 mg 07/02/21 21:00 07/03/21 08:56 Enoxaparin Sodium 120 Mg/0.8 Ml Syringe 1 mg/kg (110 mg) 110 mg SUBCUT Administration Q12H YUKI Famotidine 20 mg 07/02/21 21:00 07/03/21 08:56 Famotidine 20 Mg Tablet PO 20 mg BID YUKI Administration Glucose 15 gm 07/02/21 20:15 Glucose Gel 15 Gm Gel..Gram. PO Q15M PRN per Hypoglycemia Standing Ord. Protocol Insulin Human Lispro 0 unit 07/02/21 21:00 07/03/21 11:51 Insulin Lispro 100 Unit/Ml 3 Ml Vial SUBCUT 2 unit QIDACHS YUKI Administration Protocol Lisinopril 20 mg 07/02/21 21:00 07/02/21 22:18 Lisinopril 20 Mg Tablet PO 20 mg BEDTIME YUKI Administration Protocol Melatonin 6 mg 07/02/21 20:15 Melatonin 3 Mg Tablet PO BEDTIME PRN Insomnia Oxycodone HCl 5 mg 07/02/21 20:15 Oxycodone Hcl Immed Release 5 Mg Tablet PO Q6H PRN Pain, Severe (Pain Scale 7-10) Pharmacy Consult 1 each 07/02/21 18:04 Consult Rx Perform Med Rec MISCELLANE ONCE PRN Consult order Sodium Chloride 3 ml 07/03/21 00:00 07/03/21 09:02 0.9 % Sodium Chloride Flush 3 Ml Syringe IVFLUSH 3 ml [facility] Administration Home Medications Medication Instructions Recorded Confirmed Type aspirin 81 mg tablet,delayed 1 tab PO QPM 07/02/21 07/02/21 History release glipizide 5 mg tablet, extended 1 tab PO DAILY 07/02/21 07/02/21 History release 24 hr lisinopril 20 mg tablet 1 tab PO QPM 07/02/21 07/02/21 History metformin 1,000 mg tablet 1 tab PO BID 07/02/21 07/02/21 History pioglitazone 45 mg tablet 1 tab PO QAM 07/02/21 07/02/21 History simvastatin 40 mg tablet 1 tab PO QPM 07/02/21 07/02/21 History Allergies Allergy/AdvReac Type Severity Reaction Status Date / Time No Known Allergies Allergy Mild N/A Verified 07/02/21 09:47 Physical Exam Vital signs: Vital Signs Temp 97.9 F 07/03/21 11:42 Pulse 56 07/03/21 11:42 Resp 16 07/03/21 11:42 BP 130/74 07/03/21 11:42 Pulse Ox 96 07/03/21 11:42 Intake & Output 07/02/21 07/03/21 07/03/21 18:59 06:59 18:59 Intake Total 360 / 360 Output Total 150 / 150 Balance 360 / 360 -150 / -150 Urine Output (Average ml/kg/hr) 0.12 Intake: Intake, Oral Amount 360 / 360 Output: Output, Urine Amount 150 / 150 Other: Number of Unmeasured Voids 1 Last Bowel Movement 07/02/21 Weight 110.677 kg 108.5 kg [place] Weight in Grams [id number] Weight 108.5 kg - Constitutional Present: no acute distress - Routine HEENT Exam Head: Present: atraumatic, normal inspection Eye: Present: EOMI, normal appearance ENT: Present: mucous membranes moist - Routine Neck Exam Present: supple - Routine Respiratory Exam Present: decreased breath sounds - Routine Extremities Exam Present: calf tenderness Hem/Onc Consult Result - Labs CBC & Chem 7: 07/03/21 05:55 07/03/21 05:55 Labs: Short CBC 07/03/21 07/03/21 Range/Units 05:55 05:55 WBC Cancelled 5.6 Hgb Cancelled 12.1 L Hct Cancelled 37.7 L Plt Count Cancelled 171 BMP 07/03/21 05:55 Sodium 139 Potassium 4.6 Chloride 106 Carbon Dioxide 23 BUN 16 Creatinine 0.80 Calcium 8.9 Assessment and Plan (1) Pulmonary embolism on left Status: Acute Recommend thrombophilia evaluation the anticoagulation for six months. Will need old records and other history. Mmay use eliquis or warfarin. (2) DVT (deep venous thrombosis) Status: Acute
--- NOTE | 2021-07-03 14:39 | PM.EVENT ---
Event Note Date of Service: 07/03/21 Event Note: ?I saw and examined the patient and discuss findings, labs, meds, management and disposition with RN and I agree with management as outline in PN by RN, except if otherwise stated.
--- NOTE | 2021-07-03 15:41 | PM.IMPN ---
Progress Note: A&P (1) Pulmonary embolism on left: Status: Acute <Deb Savage NP - Last Filed: 07/03/21 15:48> (2) DVT (deep venous thrombosis): Status: Acute <Deb Savage NP - Last Filed: 07/03/21 15:48> Assessment and Plan: 75-year-old male with a past medical history of hypertension, hyperlipidemia, diabetes presented to the hospital with a chief complaint of abdominal discomfort/chest discomfort/leg pain; noted to DVT/PE.? Admitted to the for further management. Left lower extremity DVT/left lower lobe PE: Patient vitals are stable troponins negative; EKG showed no acute changes; no right strain mentioned on the CT scan. Telemetry Cycle cardiac enzymes Echocardiogram Continue Lovenox at therapeutic dose. Consult Hematology-Oncology for further recommendations. Hypercoag workup History of diabetes:? Hold home oral hypoglycemic agents.? Insulin sliding scale. Hx of hypertension/hyperlipidemia:? Continue home lisinopril/ statin. DVT prophylaxis:? Patient on Lovenox Attending Dr. Sherman Code status:? Full code Quality <Deb Savage NP - Last Filed: 07/03/21 15:48> Subjective Subjective Date of Service: 07/03/21 <Deb Savage NP - Last Filed: 07/03/21 15:48> 07/04/21 <Kurt Sherman MD - Last Filed: 07/04/21 13:34> Interval History: Follow up DVT Pain to left calf <Deb Savage NP - Last Filed: 07/03/21 15:48> Physical Exam Vital Signs: Vital Signs: Last Vital Signs Temp 98.6 F 07/03/21 15:33 Pulse 86 07/03/21 15:33 Resp 20 07/03/21 15:33 BP 124/62 07/03/21 15:33 Pulse Ox 96 07/03/21 15:33 Body Mass Index 41.0 <Deb Savage NP - Last Filed: 07/03/21 15:48> Appearing in no acute distress lung sounds are clear to auscultation heart regular rate rhythm, clear S1, S2 positive bowel sounds, abdomen is soft, nontender neuro patient is alert x3, no focal deficits <Deb Savage NP - Last Filed: 07/03/21 15:48> Objective Data Current Medications Generic Name Dose Route Start Last Admin Trade Name Jamie PRN Reason Stop Dose Admin Acetaminophen 650 mg 07/02/21 20:15 07/03/21 08:57 Acetaminophen 325 Mg Tablet PO 650 mg Q6H PRN Administration Pain, Mild (Pain Scale 1-3) Albuterol/Ipratropium 3 ml 07/02/21 20:15 Albuterol/Iprat 2.5/0.5mg 3 Ml Ampul.Neb INHALE RQ4H PRN Shortness of Breath/Wheezing Aspirin 81 mg 07/02/21 21:00 07/02/21 22:19 Aspirin Enteric Coated 81 Mg Tablet. PO 81 mg BEDTIME YUKI Administration Atorvastatin Calcium 20 mg 07/02/21 21:00 07/02/21 22:19 Atorvastatin Calcium 20 Mg Tablet PO 20 mg BEDTIME YUKI Administration Dextrose 25 gm 07/02/21 20:15 Dextrose 50 % 25 Gm/50 Ml Vial IVPUSH Q15M PRN per Hypoglycemia Standing Ord. Protocol Enoxaparin Sodium 110 mg 07/02/21 21:00 07/03/21 08:56 Enoxaparin Sodium 120 Mg/0.8 Ml Syringe 1 mg/kg (110 mg) 110 mg SUBCUT Administration Q12H YUKI Famotidine 20 mg 07/02/21 21:00 07/03/21 08:56 Famotidine 20 Mg Tablet PO 20 mg BID YUKI Administration Glucose 15 gm 07/02/21 20:15 Glucose Gel 15 Gm Gel..Gram. PO Q15M PRN per Hypoglycemia Standing Ord. Protocol Insulin Human Lispro 0 unit 07/02/21 21:00 07/03/21 11:51 Insulin Lispro 100 Unit/Ml 3 Ml Vial SUBCUT 2 unit QIDACHS YUKI Administration Protocol Lisinopril 20 mg 07/02/21 21:00 07/02/21 22:18 Lisinopril 20 Mg Tablet PO 20 mg BEDTIME YUKI Administration Protocol Melatonin 6 mg 07/02/21 20:15 Melatonin 3 Mg Tablet PO BEDTIME PRN Insomnia Oxycodone HCl 5 mg 07/02/21 20:15 Oxycodone Hcl Immed Release 5 Mg Tablet PO Q6H PRN Pain, Severe (Pain Scale 7-10) Pharmacy Consult 1 each 07/02/21 18:04 Consult Rx Perform Med Rec MISCELLANE ONCE PRN Consult order Sodium Chloride 3 ml 07/03/21 00:00 07/03/21 09:02 0.9 % Sodium Chloride Flush 3 Ml Syringe IVFLUSH 3 ml QSHIFT YUKI Administration <Deb Savage NP - Last Filed: 07/03/21 15:48> Labs CBC & Chem 7: : 07/04/21 05:17 07/04/21 05:17 <Deb Savage NP - Last Filed: 07/03/21 15:48> Labs: Laboratory Results - last 24 hr 07/02/21 07/02/21 07/03/21 09:46 22:17 05:55 MCV Cancelled MCH Cancelled MCHC Cancelled RDW Cancelled Plt Count Cancelled MPV Cancelled Immature Gran % (Auto) Neut % (Auto) Lymph % (Auto) Pickett % (Auto) Eos % (Auto) Baso % (Auto) Lymph # (Auto) Pickett # (Auto) Eos # (Auto) Baso # (Auto) Abs Immat Gran (auto) Absolute Neuts (auto) Absolute Nucleated RBC Cancelled Nucleated RBC % (auto) Cancelled Anion Gap Estim Creat Clear Calc Estimated GFR POC Glucose 117 H 89 Random Glucose Calcium Magnesium 07/03/21 07/03/21 07/03/21 05:55 05:55 05:55 MCV 85.7 MCH 27.5 MCHC 32.1 RDW 14.6 Plt Count 171 MPV 11.8 Immature Gran % (Auto) 0.2 Neut % (Auto) 60.2 Lymph % (Auto) 27.5 Pickett % (Auto) 8.6 Eos % (Auto) 3.0 Baso % (Auto) 0.5 Lymph # (Auto) 1.5 Pickett # (Auto) 0.5 Eos # (Auto) 0.2 Baso # (Auto) 0.0 Abs Immat Gran (auto) 0.01 Absolute Neuts (auto) 3.4 Absolute Nucleated RBC 0.000 Nucleated RBC % (auto) 0.0 Anion Gap 15 Estim Creat Clear Calc 90.4 Estimated GFR > 60 POC Glucose Random Glucose 103 Calcium 8.9 Magnesium 1.9 07/03/21 07/03/21 07:28 11:05 MCV MCH MCHC RDW Plt Count MPV Immature Gran % (Auto) Neut % (Auto) Lymph % (Auto) Pickett % (Auto) Eos % (Auto) Baso % (Auto) Lymph # (Auto) Pickett # (Auto) Eos # (Auto) Baso # (Auto) Abs Immat Gran (auto) Absolute Neuts (auto) Absolute Nucleated RBC Nucleated RBC % (auto) Anion Gap Estim Creat Clear Calc Estimated GFR POC Glucose 125 H 169 H Random Glucose Calcium Magnesium <Deb Savage NP - Last Filed: 07/03/21 15:48> Quality Stroke Does the patient have a stroke diagnosis?: No <Dbe Savage NP - Last Filed: 07/03/21 15:48> VTE Prior VTE?: No <Deb Savage NP - Last Filed: 07/03/21 15:48> VTE Risk Level:: Medical - moderate - high <Deb Savage NP - Last Filed: 07/03/21 15:48> VTE Device Contraindication: Treatment Not Indicated <Deb Savage NP - Last Filed: 07/03/21 15:48> VTE Drug Contraindication: N/A - Med Ordered <Deb Savage NP - Last Filed: 07/03/21 15:48>
[2021-07-03 15:58] LABS: Glucose, Whole Blood 162 mg/dL (60-115)
[2021-07-03 18:55] LABS: Prothrombin Time 11.3 SEC (9.9-13.0)
[2021-07-03 20:08] LABS: Glucose, Whole Blood 157 mg/dL (60-115)
[2021-07-03 22:10] LABS: Glucose, Whole Blood 132 mg/dL (60-115)
[2021-07-03] MEDS: Atorvastatin Calcium 20 MG TABLET PO (22:10)
[2021-07-03] MEDS: Aspirin Enteric Coated 81 MG TABLET.DR PO (22:10)
[2021-07-04] VITALS (8 sets, daily range): BP systolic 124–159; BP diastolic 76–87; PULSE 67–86; RESP 18–20; TEMP 36.5–37.3; O2SAT 94–96; BMI 40.8
[2021-07-04 06:13] LABS: Hematocrit 38.5 % (42-52); Hemoglobin 12.4 g/dl (14.0-18.0); Mean Corpuscular HGB Conc 32.2 g/dl (31.0-36.0); Mean Corpuscular Hemoglobin 27.5 pg (27.0-33.0); Mean Corpuscular Volume 85.4 fL (80-98); Platelet Count 174 X10*3/uL (160-400); Red Blood Count 4.51 X10*6/uL (4.60-5.80); Red Cell Distribution Width 14.4 % (11.0-16.0)
[2021-07-04 06:50] LABS: Anion Gap 13 (12-20); Blood Urea Nitrogen 14 mg/dL (9-16); Calcium 8.9 mg/dL (8.4-10.2); Carbon Dioxide 26 mmol/L (22-29); Chloride 106 mmol/L (96-108); Creatinine Clr Calc Pharmacy 82.9; Estimated Glomerular Filt Rate > 60; Glucose Random 125 mg/dL (60-115); Potassium 4.6 mmol/L (3.3-5.1); Sodium 140 mmol/L (135-145)
[2021-07-04 07:27] LABS: Glucose, Whole Blood 115 mg/dL (60-115)
[2021-07-04] MEDS: Famotidine 20 MG TABLET PO ×2 (09:24→21:19)
[2021-07-04] MEDS: Enoxaparin Sodium 120 MG/0.8 ML SYRINGE 110 MG SUBCUT (09:25)
[2021-07-04] MEDS: 0.9 % Sodium Chloride Flush 3 ML SYRINGE IVFLUSH ×3 (09:27→21:20)
--- NOTE | 2021-07-04 11:26 | PM.IMPN ---
Progress Note: A&P (1) Pulmonary embolism on left: Status: Acute <Deb Savage NP - Last Filed: 07/04/21 11:29> Assessment and Plan: 75-year-old male with a past medical history of hypertension, hyperlipidemia, diabetes presented to the hospital with a chief complaint of abdominal discomfort/chest discomfort/leg pain; noted to DVT/PE.? Admitted to the for further management. Left lower extremity DVT/left lower lobe PE: Patient vitals are stable troponins negative; EKG showed no acute changes; no right strain mentioned on the CT scan. Telemetry Cycle cardiac enzymes Echocardiogram change Lovenox to Eliquis 10mg BID for 7 days then 5mg BID Consult Hematology-Oncology for further recommendations. Hypercoag workup History of diabetes:? Hold home oral hypoglycemic agents.? Insulin sliding scale. Hx of hypertension/hyperlipidemia:? Continue home lisinopril/ statin. DVT prophylaxis:? Eliquis Attending Dr. Sherman Code status:? Full code <Deb Savage NP - Last Filed: 07/04/21 11:29> Subjective Subjective Date of Service: 07/04/21 <Deb Savage NP - Last Filed: 07/04/21 11:29> 07/04/21 <Kurt Sherman MD - Last Filed: 07/04/21 13:35> Interval History: Follow up PE/DVT up exercising in is room no pain or sob <Deb Savage NP - Last Filed: 07/04/21 11:29> Physical Exam Vital Signs: Vital Signs: Last Vital Signs Temp 97.8 F 07/04/21 11:14 Pulse 69 07/04/21 11:14 Resp 20 07/04/21 11:14 BP 153/87 H 07/04/21 11:14 Pulse Ox 95 07/04/21 11:14 Body Mass Index 40.8 <Deb Savage NP - Last Filed: 07/04/21 11:29> Appearing in no acute distress lung sounds are clear to auscultation heart regular rate rhythm, clear S1, S2 positive bowel sounds, abdomen is soft, nontender neuro patient is alert x3, no focal deficits <Deb Savage NP - Last Filed: 07/04/21 11:29> Objective Data Current Medications Generic Name Dose Route Start Last Admin Trade Name Freq PRN Reason Stop Dose Admin Acetaminophen 650 mg 07/02/21 20:15 07/03/21 08:57 Acetaminophen 325 Mg Tablet PO 650 mg Q6H PRN Administration Pain, Mild (Pain Scale 1-3) Albuterol/Ipratropium 3 ml 07/02/21 20:15 Albuterol/Iprat 2.5/0.5mg 3 Ml Ampul.Neb INHALE RQ4H PRN Shortness of Breath/Wheezing Aspirin 81 mg 07/02/21 21:00 07/03/21 22:10 Aspirin Enteric Coated 81 Mg Tablet. PO 81 mg BEDTIME YUKI Administration Atorvastatin Calcium 20 mg 07/02/21 21:00 07/03/21 22:10 Atorvastatin Calcium 20 Mg Tablet PO 20 mg BEDTIME YUKI Administration Dextrose 25 gm 07/02/21 20:15 Dextrose 50 % 25 Gm/50 Ml Vial IVPUSH Q15M PRN per Hypoglycemia Standing Ord. Protocol Enoxaparin Sodium 110 mg 07/02/21 21:00 07/04/21 09:25 Enoxaparin Sodium 120 Mg/0.8 Ml Syringe 1 mg/kg (110 mg) 110 mg SUBCUT Administration Q12H YUKI Famotidine 20 mg 07/02/21 21:00 07/04/21 09:24 Famotidine 20 Mg Tablet PO 20 mg BID YUKI Administration Glucose 15 gm 07/02/21 20:15 Glucose Gel 15 Gm Gel..Gram. PO Q15M PRN per Hypoglycemia Standing Ord. Protocol Insulin Human Lispro 0 unit 07/02/21 21:00 07/04/21 07:33 Insulin Lispro 100 Unit/Ml 3 Ml Vial SUBCUT Not Given [facility] Protocol Lisinopril 20 mg 07/02/21 21:00 07/03/21 22:10 Lisinopril 20 Mg Tablet PO 20 mg BEDTIME YUKI Administration Protocol Melatonin 6 mg 07/02/21 20:15 Melatonin 3 Mg Tablet PO BEDTIME PRN Insomnia Oxycodone HCl 5 mg 07/02/21 20:15 Oxycodone Hcl Immed Release 5 Mg Tablet PO Q6H PRN Pain, Severe (Pain Scale 7-10) Pharmacy Consult 1 each 07/02/21 18:04 Consult Rx Perform Med Rec MISCELLANE ONCE PRN Consult order Sodium Chloride 3 ml 07/03/21 00:00 07/04/21 09:27 0.9 % Sodium Chloride Flush 3 Ml Syringe IVFLUSH 3 ml QSHIFT YUKI Administration <Deb Savage NP - Last Filed: 07/04/21 11:29> Labs CBC & Chem 7: : 07/04/21 05:17 07/04/21 05:17 <Deb Savage NP - Last Filed: 07/04/21 11:29> Labs: Laboratory Results - last 24 hr 07/03/21 07/03/21 07/03/21 15:54 18:44 20:04 MCV MCH MCHC RDW Plt Count MPV Absolute Nucleated RBC Nucleated RBC % (auto) PT 11.3 INR 1.0 Anion Gap Estim Creat Clear Calc Estimated GFR POC Glucose 162 H 157 H Random Glucose Calcium 07/03/21 07/04/21 07/04/21 22:05 05:17 05:17 MCV 85.4 MCH 27.5 MCHC 32.2 RDW 14.4 Plt Count 174 MPV 11.0 Absolute Nucleated RBC 0.000 Nucleated RBC % (auto) 0.0 PT INR Anion Gap 13 Estim Creat Clear Calc 82.9 Estimated GFR > 60 POC Glucose 132 H Random Glucose 125 H Calcium 8.9 07/04/21 07:18 MCV MCH MCHC RDW Plt Count MPV Absolute Nucleated RBC Nucleated RBC % (auto) PT INR Anion Gap Estim Creat Clear Calc Estimated GFR POC Glucose 115 Random Glucose Calcium <Deb Savage NP - Last Filed: 07/04/21 11:29> Quality Stroke Does the patient have a stroke diagnosis?: No <Deb Savage NP - Last Filed: 07/04/21 11:29> VTE Prior VTE?: No <Deb Savage NP - Last Filed: 07/04/21 11:29> VTE Risk Level:: Medical - moderate - high <Deb Savage NP - Last Filed: 07/04/21 11:29> VTE Device Contraindication: Treatment Not Indicated <Deb Savage NP - Last Filed: 07/04/21 11:29> VTE Drug Contraindication: N/A - Med Ordered <Deb Savage NP - Last Filed: 07/04/21 11:29>
[2021-07-04 11:42] LABS: Glucose, Whole Blood 105 mg/dL (60-115)
--- NOTE | 2021-07-04 14:43 | MHC.CM.PN ---
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 PT LIVES AT HOME WITH HIS AND IS INDEPENDENT WITH CARE. PT HAS DM SUPPLIES AND A CANE WHICH HE USES PRN. PT CONFIRMS HIS PCP IS TYLER HADLEY. PT DOES NOT HAVE A HCP BUT DID COMPLETE ONE TODAY NAMING HIS SONS, CAMMY AND SAMUEL, HIS PRIMARY AND ALTERNATE AGENTS RESPECTIVELY. IMM DELIVERED CURRENT DC PLAN IS HOME WITH NO SERVICES FAMILY TO TRANSPORT
[2021-07-04 16:06] LABS: Glucose, Whole Blood 168 mg/dL (60-115)
[2021-07-04] MEDS: Insulin Lispro 100 UNIT/ML 3 ML VIAL SUBCUT (16:28)
[2021-07-04 20:04] LABS: Glucose, Whole Blood 97 mg/dL (60-115)
[2021-07-04] MEDS: Aspirin Enteric Coated 81 MG TABLET.DR PO (21:18)
[2021-07-04] MEDS: Apixaban 5 MG TABLET 10 MG PO (21:18)
[2021-07-04] MEDS: Atorvastatin Calcium 20 MG TABLET PO (21:18)
[2021-07-05 03:21] VITALS: BP 150/82; PULSE 80; RESP 18; TEMP 36.3; O2SAT 97
[2021-07-05 06:00] VITALS: BMI 40.8
--- NOTE | 2021-07-05 07:18 | P.CDIC_ITS ---
CDI Concurrent Query Service Date: 07/05/21 Documentation Clarification: Please clarify if you are treating a proba ble/suspected/likely or confirmed: Morbid Obesity Overweight Other, please specify PLEASE DO NOT DELETE/MODIFY EXISTING CONTENT Additional information is needed in order to code to the highest accuracy and appropriate Severity of Illness (SOI). Please clarify the information noted below in your progress notes and discharge summary. Risk Factors/Clinical Indicators/Treatments HT 5'4 WT 107.8 kg BMI 40.8 CDS: Yanira Combs RN Contact Number: [phone] Please Review the information above and exercise your independent professional judgment in responding to the query. If you concur, pleas document in the PROGRESS NOTES and DISCHARGE SUMMARY. If you do not agree with the query, please document in the query above. THIS QUERY IS PART OF THE PERMANENT MEDICAL RECORD
[2021-07-05 07:23] LABS: Glucose, Whole Blood 122 mg/dL (60-115)
[2021-07-05 07:30] VITALS: BP 144/75; PULSE 65; RESP 20; TEMP 36.7; O2SAT 95
--- NOTE | 2021-07-05 07:30 | CA_ITS ---
Transthoracic Echocardiogram Patient (Last, First, Middle): Chuy Noble, Gender: Male Date of : 1945 Age: 75 Procedure Date: 07/05/2021 Procedure Type: Transthoracic Echocardiogram Location: [facility] [place] Height: 162.56 cm Weight: 107.5 kg BSA: 2.10 m2 Heart Rate: bpm BP: 150 / 82 mmHg Computer Lab Para Professional: RAFAL/VINOD Referring MD: Saroj Hairston MD Manufacturing Chief Engineer: Javier Rodrigez MD Symptoms: pulm embolism Study Quality: Fair ECG Rhythm: Sinus Conclusions: - 1. Low normal LV systolic function with impaired relaxation filling pattern 2. Mildly dilated left atrium 3. Trivial aortic regurgitation 4. Normal RV systolic pressure 5. Mildly dilated ascending aorta 6. No gross pericardial effusion Findings Left Ventricle Normal left ventricular cavity size. There is normal left ventricular wall thickness. The left ventricular systolic function is low normal. Spectral Doppler is indicative of an impaired relaxation filling pattern. E/E prime ratio is between 8 and 15 consistent with indeterminate filling pressures. Right Ventricle Normal right ventricular cavity size and systolic function. Atria The left atrium is mildly dilated. There is no evidence of interatrial shunt. The right atrium is normal in size. Aortic Valve There is mild calcification of the aortic valve. There is no aortic valve stenosis. There is trace (trivial) aortic valve regurgitation. Mitral Valve There is mild anterior and moderate posterior mitral leaflet thickening. There is mild mitral annular calcification. There is trace mitral valve regurgitation. There is no mitral valve stenosis. Pulmonic Valve The pulmonic valve was not well visualized. Tricuspid Valve Likely normal tricuspid valve structure and function. There is trace tricuspid valve regurgitation. The right ventricular systolic pressure is normal. The right ventricular systolic pressure is 21 mmHg. Normal right atrial pressure. There is no evidence of pulmonary hypertension. Great Vessels The pulmonary artery was not well visualized. There is mild dilatation of the ascending aorta measuring 4.00 cm. Venous The inferior vena cava is normal in size and collapses greater than 50% with inspiration. Pericardium/Pleural There is no evidence of pericardial effusion. Prior Study Comparison No prior study available for comparison. Measurements 2D Linear Measurements IVSd: 0.98 0.6-0.9/0.6-1.0 cm LVIDd: 5.28 3.9-5.3/4.2-5.9 cm LVIDd Index: 2.51 2.4-3.2/2.2-3.1 cm/m2 LVIDs: 3.28 2.0-3.6 cm LVPWd: 1.03 0.7-1.1 cm Ao Root: 4.30 2.1-3.5 cm LA Diam: 4.20 2.7-3.8/3.0-4.0 cm LAIDs Index: 2.00 1.5-2.3 cm/m2 LV Mass: 250.00 67-162/88-224 g LV Mass Index: 119.05 43-95/49-115 g/m2 LVOT Diam: 2.10 3.0+(-)1.3 cm 2D Systolic Function EF 4C: 51.30 >55% EF 2C: 48.60 >55% Mitral Valve MV Pk E: 0.73 MV PK A: 1.06 MV Decel Time: 353.00 E/A: 0.70 E'Lateral: 7.83 E'Medial: 5.22 E/E' Med: 13.90 E/E' Lat: 9.30 PHT: 103.00 MVA PHT: 2.14 Decel Vermilion: 2.06 Aortic Valve AoV Pk Yoni: 1.31 AoV Mn Yoni: 0.84 AoV VTI: 0.25 AoV Pk Grad: 7.00 Aov Mn Grad: 3.00 CORNELL Cont.VTI: 3.06 LVOT LVOT Pk Yoni: 1.10 LVOT Mn Yoni: 0.62 LVOT VTI: 0.22 LVOT Pk Grad: 5.00 LVOT Mn Grad: 2.00 LVOT Diam: 2.10 LVOT Area: 3.46 Diastolic Function MV Pk E: 0.73 MV Pk A: 1.06 E/A: 0.70 E'Medial: 5.22 E/E' Med: 13.90 E' Laterial: 7.83 E/E' Lat: 9.30 Right Ventricle TAPSE (mm): 2.33 Tricuspid Valve TR Pk Yoni: 2.10 TR Pk Grad: 18.00 RA Press: 3.00 RVSP: 21.00 Great Vessels Aorta Ao Root-2D: 4.30 2.0-3.7 cm Ao Asc: 4.00 2.1-3.4 cm Ao Arch: 3.20 Updated in Other Vendor System with Status of Final Javier Rodrigez MD electronically signed on 07/05/2021 5:41:30 PM with status of Final
[2021-07-05] MEDS: Apixaban 5 MG TABLET 10 MG PO (09:31)
[2021-07-05] MEDS: Famotidine 20 MG TABLET PO (09:32)
[2021-07-05] MEDS: 0.9 % Sodium Chloride Flush 3 ML SYRINGE IVFLUSH (09:32)
[2021-07-05 11:40] LABS: Glucose, Whole Blood 121 mg/dL (60-115)
[2021-07-05 11:54] VITALS: BP 138/81; PULSE 70; RESP 20; TEMP 36.8; O2SAT 95
[2021-07-05 13:41] LABS: PTT (LAC) Screen 33 sec (< OR = 40)
--- NOTE | 2021-07-05 14:55 | PM.DS ---
DS: Providers Provider Date of Service: 07/05/21 Date of admission: 07/02/21 20:15 Date of discharge: 07/05/21 Primary care physician: Eleazar James MD Admitting clinician: Saroj Hairston Attending physician on admission: Saroj Hairston Consults: 07/02/21 20:14 Consult to Hematology / Oncology Routine Consulting Provider: Sarbjit Kohli Reason for consultation: DVT/PE Attending physician on discharge: Alejandro Medrano Discharging clinician: Deb Savage DS: Diagnosis Discharge Diagnosis (1) Pulmonary embolism on left: Status: Acute (2) DVT (deep venous thrombosis): Status: Acute DS: Medications Discharge Medications Home Medications: Home Medications Medication Instructions Recorded Confirmed aspirin 81 mg tablet,delayed 1 tab PO QPM 07/02/21 07/02/21 release glipizide 5 mg tablet, extended 1 tab PO DAILY 07/02/21 07/02/21 release 24 hr lisinopril 20 mg tablet 1 tab PO QPM 07/02/21 07/02/21 metformin 1,000 mg tablet 1 tab PO BID 07/02/21 07/02/21 pioglitazone 45 mg tablet 1 tab PO QAM 07/02/21 07/02/21 simvastatin 40 mg tablet 1 tab PO QPM 07/02/21 07/02/21 DS: Summary Hospital Course Hospital Course: HP as per admitting provider 75-year-old male with a past medical history of hypertension, hyperlipidemia, diabetes presented to the hospital with a chief complaint of abdominal discomfort.? Patient reported that the past days he has been having abdominal discomfort assist with nausea; also complains of chest discomfort; attributes to possible chest discomfort.? Complains of mild shortness of breath.? Denies any fever chills cough.? Denies any palpitations, lightheadedness or dizziness. Patient also complains bilateral leg cramps going on for past few days. Denies any numbness tingling.? Denies any GI or symptoms . Pulmonary embolus/ DVT. Patient presented with abdominal and chest discomfort. 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 His vital signs have remained stable, he has exhibited any hypoxia he has not complained of any shortness of breath. He was seen by Hematology, he will continue to follow up with Hematology as an outpatient and he will remain on Eliquis for now. He had an echocardiogram wall inpatient with results pending. Time Spent with Patient Time attestation: Total time spent providing and/or coordinating discharge services: Discharge coordination time: Greater than 30 minutes Quality: Stroke Does the patient have a stroke diagnosis?: No Physical Exam Vital Signs: Vital Signs: Last Vital Signs Temp 98.2 F 07/05/21 11:54 Pulse 70 07/05/21 11:54 Resp 20 07/05/21 11:54 BP 138/81 07/05/21 11:54 Pulse Ox 95 07/05/21 11:54 Body Mass Index 40.8 Appearing in no acute distress head is normocephalic atraumatic eyes pupils are PERRLA sclera is anicteric mouth throat mucous membranes are intact and moist neck is supple no lymphadenopathy, no JVD noted lung sounds are clear to auscultation heart regular rate rhythm, clear S1, S2 positive bowel sounds, abdomen is soft, nontender neuro patient is alert x3, no focal deficits DS: Data Data Completed and Pending Labs on day of discharge: Laboratory Results - last 24 hr 07/04/21 07/04/21 07/04/21 05:17 16:01 20:00 LA PTT Screen 33 dRVV Screen 27 Lupus Anticoag Interp SEE NOTE POC Glucose 168 H 97 07/05/21 07/05/21 07:19 11:34 LA PTT Screen dRVV Screen Lupus Anticoag Interp POC Glucose 122 H 121 H Discharge Plan Discharge Anticipated Discharge Date/Time: 07/05/21 15:09 Patient Disposition: Home, Self-Care Discharge Diagnosis: Pulmonary embolism Deep vein thrombosis Referrals: Eleazar James MD [Primary Care Provider] - 1 Week Discharge Medications: New Eliquis 5 mg Tablet 10 mg PO BID Qty: 74 RF: 0 Continued lisinopril 20 mg tablet 1 tab PO QPM RF: 0 glipizide 5 mg tablet extended release 24hr 1 tab PO DAILY RF: 0 pioglitazone 45 mg tablet 1 tab PO QAM RF: 0 aspirin 81 mg tablet,delayed release (DR/EC) 1 tab PO QPM RF: 0 simvastatin 40 mg tablet 1 tab PO QPM RF: 0 metformin 1,000 mg tablet 1 tab PO BID RF: 0 Discharge Orders: Discharge Order (Routine); Ordered 07/05/21 Ordered By: Deb Savage Diet: advance to usual diet Activity on Discharge: As tolerated Stand Alone Forms: Patient Portal Discharge page Care Plan Goals: continue treatment for PE and DVT Health Concerns: pulmonary embolus, deep vein thrombosis Plan of Treatment: Follow-up with your primary care provider as needed Follow-up with Hematology for further workup and evaluation of new onset of pulmonary embolus and deep vein thrombosis You have been started on a new medication for blood clots called Eliquis. He will take 10 mg twice daily for the next 6 days and then 5 mg twice daily Assessment: see discharge summary Patient Instructions: Apixaban (By mouth) Discharge Date/Time: 07/05/21 16:41
[2021-07-06 20:47] LABS: Protein C Activity 126 % (70-180); Protein S Activity rflx Tot&Fr 83 % (70-150)
== END 2021-07-05 16:41 | disposition home or self-care (01) | DRG 299 ==
LOC: HO.ED 19:05 → HO.EDOVER 20:38 → HO.IMC 20:39
PROVIDERS: Internal Medicine; Internal Medicine Medical Oncology; Nurse Practitioner Acute Care; Nurse Practitioner Family; Admitting Provider Hospitalist; Emergency Provider Emergency Medicine Emergency Medical Services; PCP Internal Medicine; Visit Provider Family Medicine
DX: I82.452 Acute embolism and thrombosis of left peroneal vein (principal); I26.99 Other pulmonary embolism without acute cor pulmonale; I82.592 Chronic embolism and thrombosis of other specified deep vein of left lower extremity; E78.5 Hyperlipidemia, unspecified; Z20.822 Contact with and (suspected) exposure to COVID-19; Z79.01 Long term (current) use of anticoagulants; Z79.82 Long term (current) use of aspirin; Z79.899 Other long term (current) drug therapy
CPT/HCPCS: 0241U; 36415; 71046; 71275; 80048; 80076; 81003; 81240; 81241; 82550; 82947; 83690; 83735; 83880; 84484; 85025; 85027; 85302; 85303; 85305; 85306; 85379; 85597; 85610; 85613; 85730; 93005; 93306; 93970; 96372; 99285; J1650; Q9967

== ENCOUNTER → 2021-09-14 09:27 | Outpatient (BNVA) | payer MEDICARE, OTHER, SELFPAY | PROVIDERS: PCP Internal Medicine; Visit Provider Surgery Vascular Surgery | DX: I83.12 Varicose veins of left lower extremity with inflammation (principal) | CPT/HCPCS: 99202 ==

== ENCOUNTER 2021-12-22 10:27 | Outpatient (REF) | payer MEDICARE, OTHER, SELFPAY ==
--- NOTE | ~2021-12-22 | US_ITS ---
EXAMINATION: US LOWER EXTREMITY VENOUS (REFLUX EXAM), BILATERAL CLINICAL INDICATION: This is a 76-year-old male with venous insufficiency and varicose veins. COMPARISON: Comparison is made to a venous reflux ultrasound dated 02/14/2017 which demonstrated bilateral dilated incompetent saphenous veins supplying the varicose veins. TECHNIQUE: Color flow triplex imaging and compression Doppler was performed to evaluate both the deep and the superficial systems bilaterally. To evaluate the superficial system, the examination was performed in the upright position. Color-flow Doppler ultrasound and compression ultrasound were utilized. In addition, maneuvers were utilized to demonstrate reflux. FINDINGS: 1. DEEP VENOUS ULTRASOUND OF THE RIGHT LOWER EXTREMITY: Common Femoral Vein: Compressible, normal respiratory variation and augmented flow. Femoral vein: Compressible, normal color flow and augmentation. Popliteal Vein: Compressible, normal augmentation. Deep Reflux: There is no evidence of reflux in the deep system in either the common femoral vein or the popliteal vein. There is no evidence of a Brothers's cyst. 2. SUPERFICIAL ULTRASOUND WITH DOPPLER OF RIGHT LOWER EXTREMITY: GREAT SAPHENOUS VEIN: Saphenofemoral Junction: 0.9 cm. The reflux time is 476 ms. Mid Thigh: 0.6 cm. The reflux time is 1236 ms. Above Knee: 0.7 cm. The reflux time is 1092 ms. Below Knee: 0.6 cm. The reflux time is 2908 ms. Mid Calf: 0.3 cm. The reflux time is 2908 ms. Ankle: 0.3 cm. The reflux time is 1932 ms. GSV REFLUX: There is reflux at the junction and throughout the great saphenous vein. DUPLICATED GREAT SAPHENOUS VEIN: None SMALL SAPHENOUS VEIN: Proximal: 0.3 cm. The reflux time is 1676 ms. Distal: 0.2 cm. The reflux time is 1284 ms. SSV REFLUX: There is reflux at the junction and throughout the small saphenous vein. VEIN OF GIACOMINI: None Imaged. PERFORATORS: There is a 0.3 cm mid calf provider engagement executive without reflux. VARICOSITIES: There are 0.5 cm proximal thigh varicose veins without reflux. There are 0.4 cm below knee varicose veins with reflux of 1432 ms. 3. DEEP VENOUS ULTRASOUND OF THE LEFT LOWER EXTREMITY: Common Femoral Vein: Compressible, normal respiratory variation and augmented flow. Femoral Vein: Compressible, normal color flow and augmentation. Popliteal Vein: Compressible, normal augmentation. Deep Reflux: There is no evidence of reflux in the deep system in either the common femoral vein or the popliteal vein. There is no evidence of a Brothers's cyst. 4. SUPERFICIAL ULTRASOUND WITH DOPPLER OF LEFT LOWER EXTREMITY: GREAT SAPHENOUS VEIN: Saphenofemoral Junction: 1.5 cm. There is no reflux. Mid Thigh: 0.6 cm. The reflux time is 1340 ms. Above Knee: 0.6 cm. The reflux time is 2720 ms. Below Knee: Not seen. Mid Calf: 0.2 cm. There is no reflux. Ankle: 0.3 cm. There is no reflux. GSV REFLUX: No evidence of reflux. DUPLICATED GREAT SAPHENOUS VEIN: None SMALL SAPHENOUS VEIN: Proximal: 0.4 cm Distal: 0.3 cm SSV REFLUX: No evidence of reflux. VEIN OF GIACOMINI: None Imaged. PERFORATORS: There are 0.5 cm proximal thigh perforators without reflux. There is a 0.4 cm proximal calf provider engagement executive without reflux. VARICOSITIES: There are 0.4 cm mid calf varicose veins without reflux. There is below-knee cluster of varicose veins medially measuring 0.2 cm with reflux of 2108 ms. Within the left mid thigh there is a complex cystic area measuring 1.2 x 0.6 x 1.3 cm. This complex cystic area is unclear in etiology. This may be better evaluated with MRI. US/US venous duplex LE BI IMPRESSION: 1. There is a patent right great saphenous vein with reflux. This is supplying the varicose veins in the right leg. 2. There is a patent right small saphenous vein with reflux. 3. There is a patent left great saphenous vein with reflux at the junction and extending downward. This is supplying the varicose veins. 4. There is a patent left small saphenous vein without reflux. 5. There are bilateral varicose veins with reflux. 6. There is a complex cystic area in the thigh measuring 1.3 cm. MRI is recommended.
== END 2021-12-22 10:28 | disposition home or self-care (01) ==
LOC: HO.US 10:27
PROVIDERS: Visit Provider Surgery Vascular Surgery
DX: I83.12 Varicose veins of left lower extremity with inflammation (principal)
CPT/HCPCS: 93970

== ENCOUNTER → 2022-01-04 11:16 | Outpatient (BNVA) | payer MEDICARE, OTHER, SELFPAY | PROVIDERS: PCP Internal Medicine; Visit Provider Surgery Vascular Surgery | DX: I83.12 Varicose veins of left lower extremity with inflammation (principal) | CPT/HCPCS: 99212 ==

== ENCOUNTER → 2022-01-28 08:52 | Outpatient (BNVA) | payer MEDICARE, OTHER, SELFPAY | PROVIDERS: PCP Internal Medicine; Visit Provider Surgery Vascular Surgery | DX: I83.12 Varicose veins of left lower extremity with inflammation (principal) | CPT/HCPCS: 36475 ==

== ENCOUNTER 2022-01-31 10:04 | Outpatient (REF) | payer MEDICARE, OTHER, SELFPAY ==
--- NOTE | ~2022-01-31 | US_ITS ---
EXAMINATION: US VENOUS ULTRASOUND WITH DOPPLER LOWER EXTREMITY, LEFT CLINICAL INFORMATION: Postablation. Left leg pain. COMPARISON: None TECHNIQUE: Ultrasound of the deep veins is performed from the hip to the calf with compression sonography and color and pulse Doppler assessment. Spectral analysis with color-flow imaging is performed. FINDINGS: There is normal venous compression and respiratory variation and augmented flow. The visualized common femoral vein, superficial femoral vein, profunda femoral vein, popliteal vein, and the trifurcation region shows no evidence of deep venous thrombosis. There is no significant popliteal fossa cyst. Postablation changes are seen in the great saphenous vein. If the patient's symptoms persist, followup ultrasound in 5 days 7 days might be of value to exclude proximal propagation from a non-visualized calf vein. US/US venous duplex LE IMPRESSION: Postablation changes left great saphenous vein. No DVT demonstrated in the left lower extremity.
== END 2022-01-31 10:05 | disposition home or self-care (01) ==
LOC: HO.US 10:04
PROVIDERS: Visit Provider Surgery Vascular Surgery
DX: M79.605 Pain in left leg (principal)
CPT/HCPCS: 93971

== ENCOUNTER → 2022-02-24 13:03 | Outpatient (BNVA) | payer MEDICARE, OTHER, SELFPAY | PROVIDERS: PCP Internal Medicine; Visit Provider Surgery Vascular Surgery | DX: I83.11 Varicose veins of right lower extremity with inflammation (principal) | CPT/HCPCS: 99212 ==

== ENCOUNTER 2022-03-21 14:07 | Outpatient (REF) | payer MEDICARE, OTHER, SELFPAY | END 2022-03-21 14:08 | disposition home or self-care (01) | LOC: HO.US 14:07 | PROVIDERS: Visit Provider Surgery Vascular Surgery | DX: Z13.89 Encounter for screening for other disorder (principal) ==

== ENCOUNTER 2022-05-19 09:33 | Emergency (ER) | payer MEDICARE, OTHER, SELFPAY ==
[2022-05-19 10:09] VITALS: BP 118/72; PULSE 65; RESP 18; TEMP 36.6; O2SAT 95; BMI 43.0
--- NOTE | 2022-05-19 10:17 | ED_ITS ---
HPI - Wound/Laceration General Chief Complaint: Wound/Laceration Stated Complaint: glass cut left arm Time Seen by Provider: 05/19/22 10:17 Source: patient Mode of arrival: ambulatory Limitations: language barrier History of Present Illness HPI narrative: [age] Telugu-speaking male here for a cut on his left arm just prior to arrival. Patient had a window that was out of the window frame, he tripped on a wet rock and fell onto the glass of the window. He did not hit his head, he had no loss of consciousness. He caught himself and did not fall down This was a mechanical fall, he was not dizzy, not lightheaded, no chest pain, no shortness of breath Patient is on Eliquis. Patient is not up-to-date on his tetanus. Related Data Home Medications Medication Instructions Recorded Confirmed aspirin 81 mg tablet,delayed 1 tab PO QPM 07/02/21 07/02/21 release glipizide 5 mg tablet, extended 1 tab PO DAILY 07/02/21 07/02/21 release 24 hr lisinopril 20 mg tablet 1 tab PO QPM 07/02/21 07/02/21 metformin 1,000 mg tablet 1 tab PO BID 07/02/21 07/02/21 pioglitazone 45 mg tablet 1 tab PO QAM 07/02/21 07/02/21 simvastatin 40 mg tablet 1 tab PO QPM 07/02/21 07/02/21 blood sugar diagnostic (FreeStyle #10 ea 09/14/21 Lite Strips) lancets 33 gauge (TRUEplus Lancets) #100 ea 09/14/21 Previous Rx's Medication Instructions Recorded apixaban 5 mg tablet (Eliquis) 10 mg PO BID #74 tabs 07/05/21 Allergies Allergy/AdvReac Type Severity Reaction Status Date / Time No Known Allergies Allergy Mild N/A Verified 02/24/22 13:14 Review of Systems Constitutional: Constitutional: Denies body ache(s), Denies chills, Denies fatigue, Denies fever(s), Denies malaise and Denies weakness Eyes: Eyes: Denies diplopia Cardiovascular: Cardiovascular: Denies chest pain, Denies syncope, Denies leg edema, Denies lightheadedness, Denies Loss of Consciousness, Denies palpitations and Denies dyspnea Respiratory: Respiratory: Denies chest congestion, Denies cough and Denies dyspnea Musculoskeletal: Musculoskeletal: Reports no additional musculoskeletal complaints, Denies arthralgias, Denies joint swelling, Denies numbness, Denies radiating pain into limb and Denies tingling Integumentary/Breasts: Comments: Laceration to left arm Neurologic: Denies confusion, Denies syncope, Denies numbness, Denies tingling and Denies weakness Psychiatric: Psychiatric: Denies anxiety, Denies confusion and Denies depression Endocrine: Endocrine: Denies fatigue and Denies palpitations PMF Past Medical History Medical History Diabetes High cholesterol Hypertension Social History Social History Household Members: Spouse Housing: House Do you presently have visiting nurse or other home services: No Alcohol intake: former Patient Tobacco Use Status: Never used Tobacco Advance Directives: No Advance Directives Information Provided: No Advance Directives Date on File: 07/02/21 Current occupational status: retired Physical Exam Vital Signs: Vital Signs: Last Vital Signs Temp 98 F 05/19/22 10:09 Pulse 65 05/19/22 10:09 Resp 18 05/19/22 10:09 BP 118/72 05/19/22 10:09 Pulse Ox 95 05/19/22 10:09 O2 Del Method 05/19/22 10:09 BMI result Body Mass Index 43.0 Const: General: No confusion Nutritional Appearance: well nourished Orientation/consciousness: No confusion Limitations: no limitations Eyes: Conjunctivae: conjunctivae normal Pupils: Equal, round and reactive pupils present EOM: EOMs intact bilaterally Neck: Neck: Yes full ROM, Yes no lymphadenopathy and Yes supple Resp: Effort & Inspection: normal respiratory effort and able to speak in complete sentences Auscultation: clear to auscultation bilaterally, no crackles, no rales, no rhonchi and no wheezes Cardio: Rate: regular rate Rhythm: regular rhythm Heart sounds: S1 normal heart sound present and S2 normal heart sound present Skin: Other: 5 cm full-thickness laceration to left arm at dorsal aspect of elbow Neuro: General: No confusion Cranial nerves: Yes Equal, round and reactive pupils present Extrem: Left upper extremity: normal to inspection, full ROM, normal capillary refill and no joint enlargement; no cyanosis and no edema Shoulder/upper arm images: 1. laceration Psych: Appearance: grossly normal Affect: normal affect Attitude: coope rative Thought process: Normal thought process present Course Course Course Narrative: 76-year-old male on Eliquis presents for mechanical fall with a 5 cm laceration to the dorsum of his left upper extremity. Sutured with 5 sutures, gave return precautions, gave tetanus, gave wound care instructions, infection precautions Told patient to return on May 26 for suture removal Security Advisor present for all patient communication, all patient's questions were answered, patient is safe for discharge Procedures Laceration Laceration 1: Site: upper extremity Side (If applicable): left Size (cm): 5 Description: flap Depth: simple, single layer Local Anesthetic: lidocaine 1% Amount of anesthesia used (mL): 6 Pre-repair: wound explored, irrigated extensively and deep structures i ntact Skin layer closed with: vicryl Size (cm): 3-0 Number of sutures: 5 Technique: simple, interrupted Discharge Plan Discharge Clinical Impression: Laceration Patient Disposition: Home, Self-Care Instructions: Laceration (ED) Additional Instructions: You have 5 stitches. You need to get them removed in 7 days, on May 26. Please leave the dressing replaced in place until tomorrow, at which time he may take it off, wash with soap and water, pat dry, apply thin layer bacitracin, apply another nonstick dressing. Please do this for the next 3-4 days, after that you may just keep it covered with Band-Aids. Please return to emergency room if you have any redness, swelling, warmth, as these are signs of infection. In addition, you have some swelling under the skin, using a pressure dressing such as an Bjorn bandage for the next day or 2 over the dressing may help with the bleeding under the skin. Tienes 5 puntos. Debe quit?rselos en 7 d?as, el 30 de . Deje el vendaje colocado hasta ma?estefany, momento en el que se lo puede quitar, demetria con agua y jab?n, secar, aplicar toni capa delgada de bacitracina, aplicar otro antiadherente vendaje. John esto zunilda los pr?ximos 3-4 d?as, despu?s de eso, puede mantenerlo cubierto con curitas. Regrese a la carter de emergencias si tiene enrojecimiento, hinchaz?n o calor, ya que estos son signos de infecci?n. Adem?s, si tiene algo de hinchaz?n debajo de la piel, el uso de un vendaje compresivo ally un vendaje Bjorn zunilda el d?a siguiente o 2 sobre el vendaje puede ayudar con el sangrado debajo de la piel. Prescriptions: No Action lisinopril 20 mg tablet 1 tab PO QPM glipizide 5 mg tablet extended release 24hr 1 tab PO DAILY pioglitazone 45 mg tablet 1 tab PO QAM aspirin 81 mg tablet,delayed release (DR/EC) 1 tab PO QPM simvastatin 40 mg tablet 1 tab PO QPM metformin 1,000 mg tablet 1 tab PO BID Eliquis 5 mg Tablet 10 mg PO BID Qty: 74 0RF Rx Instructions: Take 10 mg twice daily for 6 more days then continue on 5mg twice daily (DME) lancets [TRUEplus Lancets] 33 gauge misc See Rx Instructions Not Applicable BID Qty: 100 Rx Instructions: As directed (DME) FreeStyle Lite Strips Strip See Rx Instructions Not Applicable BID Qty: 10 Rx Instructions: As directed
[2022-05-19] MEDS: Diphth,Pertus(ACell),Tet Adult 0.5 ML SYRINGE IM (11:44)
[2022-05-19] MEDS: Lidocaine HCl 1 % MPF 5 ML VIAL SUBCUT ×2 (11:58)
== END 2022-05-19 12:36 | disposition home or self-care (01) ==
PROVIDERS: Emergency Provider Student in an Organized Health Care Education/Training Program; PCP Internal Medicine
DX: S41.112A Laceration without foreign body of left upper arm, initial encounter (principal); E11.9 Type 2 diabetes mellitus without complications; I10 Essential (primary) hypertension; Z79.01 Long term (current) use of anticoagulants; W01.110A Fall on same level from slipping, tripping and stumbling with subsequent striking against sharp glass, initial encounter; Y93.9 Activity, unspecified; Y92.9 Unspecified place or not applicable; Y99.9 Unspecified external cause status
CPT/HCPCS: 12002; 90471; 90715; 99283; 99284

== ENCOUNTER 2023-07-13 10:36 | Outpatient (REF) | payer MEDICARE, OTHER, SELFPAY ==
[2023-07-13 11:11] LABS: MANUAL DIFF FLAG NO
[2023-07-13 11:34] LABS: Basophils Percent Auto 0.5 % (0-2); Eosinophils Absolute Auto 0.1 X10*3/uL (0.0-0.4); Eosinophils Percent Auto 2.1 % (0-4); Hematocrit 31.2 % (42.0-52.0); Hemoglobin 9.8 g/dl (14.0-18.0); Imm Gran Abs Auto 0.01 X10*3/uL (0.00-0.03); Imm Gran Pct Auto 0.2 % (0.0-0.4); Lymphocytes Absolute Auto 1.6 X10*3/uL (1.2-4.9); Lymphocytes Percent Auto 28.7 % (20-40); Mean Corpuscular HGB Conc 31.4 g/dl (31.0-36.0); Mean Corpuscular Hemoglobin 25.9 pg (27.0-33.0); Mean Corpuscular Volume 82.3 fL (80.0-98.0); Mean Platelet Volume 11.3 fL (9.4-12.4); Monocytes Absolute Auto 0.5 X10*3/uL (0.1-1.2); Monocytes Percent Auto 7.9 % (2-11); Neutrophils Absolute Auto 3.4 x10*3/uL (2.0-8.3); Neutrophils Percent Auto 60.6 % (45-73); Platelet Count 195 X10*3/uL (160-400); Red Blood Count 3.79 X10*6/uL (4.60-5.80); Red Cell Distribution Width 15.9 % (11.0-16.0); White Blood Count 5.7 X10*3/uL (4.8-10.8)
[2023-07-13 12:18] LABS: Alanine Aminotransferase 7 U/L (0-40); Albumin Level 3.7 g/dL (3.5-5.0); Alkaline Phosphatase 83 U/L (39-117); Anion Gap 9 (12-20); Aspartate Amino Transferase 14 U/L (5-37); Bilirubin Total 0.7 mg/dL (0.0-1.0); Blood Urea Nitrogen 22 mg/dL (9-16); Calcium 9.2 mg/dL (8.4-10.2); Carbon Dioxide 26 mmol/L (22-29); Chloride 110 mmol/L (96-108); Estimated Glomerular Filt Rate > 60; Glucose Random 114 mg/dL (60-115); Potassium 4.1 mmol/L (3.3-5.1); Sodium 141 mmol/L (135-145); Total Protein 6.9 g/dL (6.5-8.0)
== END 2023-07-13 10:37 | disposition home or self-care (01) ==
LOC: HO.HHCL 10:36
PROVIDERS: Visit Provider Internal Medicine
DX: I10 Essential (primary) hypertension (principal); D50.9 Iron deficiency anemia, unspecified
CPT/HCPCS: 36415; 80053; 85025

== ENCOUNTER → 2023-07-25 13:08 | Outpatient (BNV) | payer MEDICARE, SELFPAY | PROVIDERS: PCP Internal Medicine; Referring Provider Internal Medicine; Visit Provider Internal Medicine | DX: D64.9 Anemia, unspecified (principal) | CPT/HCPCS: 99204; 99212; 99214 ==

== ENCOUNTER 2023-08-18 08:20 | Outpatient (REF) | payer MEDICARE, OTHER, SELFPAY ==
--- NOTE | ~2023-08-18 | US_ITS ---
EXAMINATION: US ABDOMEN COMPLETE CLINICAL INFORMATION: Unexplained anemia.? hepatomegaly. COMPARISON: CT abdomen and pelvis 06/17/2014. X-ray abdomen KUB 01/02/2008. Renal ultrasound 09/18/2007. TECHNIQUE: Real-time imaging of the abdominal viscera. FINDINGS: PANCREAS: Pancreas obscured by bowel gas and is not clearly seen. ABDOMINAL AORTA: Abdominal aorta is obscured by bowel gas and not clearly seen. INFERIOR VENA CAVA: Visualized portions are normal. LIVER: Normal. The liver is normal in size. The liver contour is normal. Parenchymal echogenicity is normal. No focal hepatic lesion. There is no intrahepatic biliary duct dilatation seen. GALLBLADDER: Normal. The gallbladder is physiologically distended without evidence of stones, sludge, polyps, wall thickening or pericholecystic fluid. COMMON BILE DUCT: Normal in caliber measuring 0.5 cm in diameter. RIGHT KIDNEY: No hydronephrosis or renal calculi. The kidney measures 10.5 cm in maximum dimension. There is interpolar 1.5 x 1.4 x 1.3 cm cyst in lower pole 1.2 x 1.1 x 1.2 cm cyst with calcification in the wall. LEFT KIDNEY: Normal. No hydronephrosis. No renal calculi or focal parenchymal lesions. The kidney measures 11.1 cm in maximum dimension. SPLEEN: Normal. The spleen measures 9.1 cm in maximum dimension. FREE FLUID: None. US/US abdomen complete IMPRESSION: 2 cysts in the right kidney. Technically limited examination
== END 2023-08-18 08:21 | disposition home or self-care (01) ==
LOC: HO.US 08:20
PROVIDERS: PCP Internal Medicine; Visit Provider Internal Medicine
DX: D64.9 Anemia, unspecified (principal)
CPT/HCPCS: 76700

== ENCOUNTER 2023-10-06 09:39 | Outpatient (REF) | payer MEDICARE, OTHER, SELFPAY ==
--- NOTE | ~2023-10-06 | CT_ITS ---
EXAMINATION: CT ABDOMEN AND PELVIS WITH CONTRAST CLINICAL INFORMATION: Abdominal pain, evaluate pancreas COMPARISON: 06/17/2014 CT, 08/18/2023 abdominal ultrasound TECHNIQUE: Multidetector volumetric images were obtained from the superior aspect of the liver through the pubic symphysis following administration 85 mL of Omnipaque 350 intravenous contrast. Sagittal and coronal reformatted images were obtained on the technologist's workstation. Oral contrast: No This CT examination was performed using dose optimization techniques as appropriate, variously including the following: *Automated exposure control *Adjustment of mA and/or kV according to patient size (this includes techniques or standardized protocols for targeted exams where dose is matched to indication/reason for exam; i.e. extremities or head) *Use of iterative reconstruction technique DLP: 601 mGy-cm FINDINGS: CIRCULATION TENDER: Nonobstructive bowel pattern. LUNG BASES: 4 mm subpleural left lower lobe nodule, 3:15. Bibasilar atelectasis. Heart size within normal limits. No pericardial effusion. Nonenlarged heart. No pericardial effusion. LIVER, GALLBLADDER, AND BILIARY TREE: The liver is normal in size, shape, and attenuation. No focal hepatic lesion or biliary ductal dilatation is present. The gallbladder is unremarkable with no evidence of radiopaque gallstones, gallbladder wall thickening, or obvious pericholecystic inflammatory changes. PANCREAS: No pancreatic lesion, pancreatic ductal dilatation, peripancreatic inflammatory changes or fluid. SPLEEN: Unremarkable. ADRENAL GLANDS: Unremarkable. KIDNEYS AND URETERS: The kidneys are normal in size, shape, and attenuation. No hydronephrosis, hydroureter, or calculi seen. Too small to characterize perihepatic hypodensities, likely cysts. Nonspecific bilateral perinephric stranding. BLADDER: Unremarkable. GASTROINTESTINAL TRACT: Moderate sized thick walled hiatal hernia. Decompressed stomach. Nonobstructive bowel pattern. Appendix not seen with certainty. Diverticulosis without diverticulitis. ABDOMINAL WALL: Small fat filled umbilical hernia. Fat filled inguinal hernias. On the left, containing 1.4 cm peripherally calcified round hypodensity. LYMPH NODES: No pathologic lymphadenopathy. VASCULAR: Atherosclerotic calcifications nonaneurysmal aorta and tortuous iliac arteries. Unremarkable inferior vena cava. Retroaortic left renal vein. Patent portal system. PELVIC VISCERA: Nonenlarged prostate with calcifications. Phleboliths. Left herniorrhaphy material. OSSEOUS STRUCTURES: Unchanged anterolisthesis L5 on S1 with disc space narrowing, sclerosis and vacuum disc phenomena. CT/CT abdomen pelvis w IV con IMPRESSION: As questioned clinically, no CT evidence of pancreatic abnormality. If there is a persistent concern, consider pancreatic protocol MRI. Thick-walled hiatal hernia. Renal hypodensities, too small to characterize, likely cysts. Ultrasound could confirm. 4 mm subpleural left lower lobe pulmonary nodule. No further follow-up recommended. Fleischner guidelines were followed.
[2023-10-06] MEDS: iohexoL 350 MG/ML 100 ML INFUS..BTL 85 ML IV (12:27)
[2023-10-06] MEDS: Barium Sulfate Oral (Vanilla) 450 ML ORAL.SUSP 900 ML PO (12:28)
[2023-10-09 08:18] LABS: Creatinine POC 0.5 mg/dL (0.5-1.4); GFR POC > 60
== END 2023-10-06 09:40 | disposition home or self-care (01) ==
LOC: HO.CT 09:39
PROVIDERS: Visit Provider Internal Medicine
DX: R10.9 Unspecified abdominal pain (principal)
CPT/HCPCS: 74177; 82565; Q9967

== ENCOUNTER 2024-08-29 11:29 | Outpatient (REF) | payer MEDICARE, MEDICAID, SELFPAY ==
[2024-08-29 13:04] LABS: MANUAL DIFF FLAG NO
[2024-08-29 13:08] LABS: Basophils Percent Auto 0.7 % (0-2); Eosinophils Absolute Auto 0.1 X10*3/uL (0.0-0.4); Hematocrit 35.7 % (42.0-52.0); Hemoglobin 11.4 g/dl (14.0-18.0); Imm Gran Abs Auto 0.01 X10*3/uL (0.00-0.03); Imm Gran Pct Auto 0.2 % (0.0-0.4); Lymphocytes Absolute Auto 1.6 X10*3/uL (1.2-4.9); Lymphocytes Percent Auto 26.7 % (20-40); Mean Corpuscular HGB Conc 31.9 g/dl (31.0-36.0); Mean Corpuscular Hemoglobin 28.1 pg (27.0-33.0); Mean Corpuscular Volume 87.9 fL (80.0-98.0); Mean Platelet Volume 11.5 fL (9.4-12.4); Monocytes Absolute Auto 0.4 X10*3/uL (0.1-1.2); Monocytes Percent Auto 7.2 % (2-11); Neutrophils Absolute Auto 3.8 x10*3/uL (2.0-8.3); Neutrophils Percent Auto 63.2 % (45-73); Platelet Count 191 X10*3/uL (160-400); Red Blood Count 4.06 X10*6/uL (4.60-5.80); Red Cell Distribution Width 14.2 % (11.0-16.0)
== END 2024-08-29 11:30 | disposition home or self-care (01) ==
LOC: HO.HHCL 11:29
PROVIDERS: Visit Provider Internal Medicine
DX: D50.9 Iron deficiency anemia, unspecified (principal)
CPT/HCPCS: 36415; 85025

== ENCOUNTER 2025-06-04 10:42 | Emergency (ER) | payer MEDICARE, MEDICAID, SELFPAY ==
--- NOTE | ~2025-06-04 | XR_ITS ---
EXAMINATION: XR FOOT 3 OR MORE VIEWS RIGHT HISTORY: right heel pain COMPARISON: Comparison is made with the prior examination dated 02/19/2018. FINDINGS: Three views of the right foot are submitted. The bones are osteopenic. There is no fracture or dislocation. The joint spaces are preserved. There are vascular calcifications. XR/XR foot RT min 3V IMPRESSION: Osteopenia. Otherwise unremarkable examination of the right foot. Electronically signed by: Jake Owen MD 06/04/2025 01:43 PM EDT
--- NOTE | ~2025-06-04 | US_ITS ---
EXAMINATION: US TRIPLEX LOWER EXTREMITY, RIGHT CLINICAL INFORMATION: Right lower extremity pain, history of DVT. COMPARISON: 01/31/2022, 12/22/2021. TECHNIQUE: Color-flow triplex imaging with spectral analysis and compression Doppler was performed on the right lower extremity. FINDINGS: Respiratory variation, normal compression and augmented flow are noted throughout the right lower extremity. The visualized common femoral vein, superficial femoral vein, profunda femoral vein, popliteal vein and midcalf peroneal and posterior tibial venous segments show no evidence of deep venous thrombosis. There is a small Brothers's cyst measuring 2.2 x 1.3 x 0.6 cm. Reactive appearing right groin lymph node, with large fatty hilum. US/US venous duplex LE RT IMPRESSION: 1. No evidence of deep venous thrombosis involving the right lower extremity. 2. Small Brothers's cyst. 3. Reactive appearing right groin lymph node. Electronically signed by: Faizan Gudino MD 06/04/2025 12:21 PM EDT
--- NOTE | 2025-06-04 11:19 | ED.GENADULT ---
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 Patient states that yesterday he noted bleeding from the wound. He denies any purulent drainage from the wound. Denies recent fevers, chills, body aches. Denies any erythema streaking up his leg. Patient complains of sharp pain to right heel, states it feels as though something is in there poking him. Patient does not regularly check point of care glucose levels. Denies calf pain, chest pain, palpitations, dyspnea, dizziness or lightheadedness, syncope. MD complaint: wound Onset (ago): month(s) Related Data Home Medications ?Medication ?Instructions ?Recorded ?Confirmed aspirin 81 mg tablet,delayed 1 tab PO QPM 07/02/21 04/30/24 release glipizide 5 mg tablet, extended 1 tab PO DAILY 07/02/21 04/30/24 release 24 hr lisinopril 20 mg tablet 1 tab PO QPM 07/02/21 04/30/24 metformin 1,000 mg tablet 1 tab PO BID 07/02/21 04/30/24 pioglitazone 45 mg tablet (Actos) 1 tab PO QAM 07/02/21 04/30/24 simvastatin 40 mg tablet 1 tab PO QPM 07/02/21 04/30/24 blood sugar diagnostic (FreeStyle #10 ea 09/14/21 04/30/24 Lite Strips) lancets 33 gauge (TRUEplus Lancets) #100 ea 09/14/21 04/30/24 Previous Rx's ?Medication ?Instructions ?Recorded ferrous sulfate 325 mg (65 mg 325 mg PO BID #60 tabs 10/23/24 iron) tablet (iron) cephalexin 500 mg capsule 500 mg PO QID #28 caps 06/04/25 Allergies Allergy/AdvReac Type Severity Reaction Status Date / Time No Known Allergies Allergy Mild N/A Verified 06/04/25 11:24 Review of Systems Review of Systems: As per HPI Yes all other systems are reviewed and are negative Constitutional: Constitutional: Reports as per HPI [facility] Past Medical History Medical History (Updated 06/04/25 @ 15:09 by Yesica Herring NP) History of kidney stones FRANCISCO J (iron deficiency anemia) Multiple subsegmental pulmonary emboli without acute cor pulmonale Venous insufficiency Obesity High cholesterol Hypertension Diabetes Surgical History History of colonoscopy Family History Family History Sister Stomach cancer Brother HTN (hypertension) Diabetes Mother Ovarian cancer Social History Social History Household Members: Spouse Housing: House Do you presently have visiting nurse or other home services: No Alcohol intake: former Comment: room is next to rn station Patient Tobacco Use Status: Never used Tobacco Advance Directives: No Advance Directives Information Provided: Yes Advance Directives Date on File: 07/02/21 service: No Current occupational status: retired Physical Exam ED Vital Signs: Vital Signs - 24 hr 06/04/25 11:20 06/04/25 12:27 06/04/25 14:51 Temperature 97.9 F 97.8 F 98.5 F Pulse Rate 66 60 56 Respiratory Rate 16 16 16 Blood Pressure 125/72 130/75 135/85 Pulse Oximetry 96 96 95 Oxygen Delivery Method Room Air Room Air Room Air BMI result Body Mass Index 38.8 Vital signs have been reviewed and appear to be correct. Blood pressure normal. Heart rate normal. Respiratory rate normal. Temperature normal. Oxygen saturation normal. Const General: cooperative, healthy appearing and no acute distress Orientation/consciousness: oriented to person, oriented to place, oriented to time and patient oriented x3 Limitations: no limitations HENMT Head: Yes normocephalic and Yes atraumatic Ears: external ears normal General nose exam: Normal external nose present Face and sinus: Yes face symmetric Mouth: oropharynx normal and moist mucous membranes Throat: Yes uvula midline Eyes Pupils: Equal, round and reactive pupils present Neck Neck: Yes normal visual inspection and Yes supple Resp Effort & Inspection: normal respiratory effort and able to speak in complete sentences Auscultation: clear to auscultation bilaterally Cardio Rate: regular rate Rhythm: regular rhythm Heart sounds: S1 normal heart sound present and S2 normal heart sound present GI Palpation (GI): Soft to palpation and nontender Auscultation: normoactive bowel sounds General: Yes no CVA tenderness Back/Spine/Pelvis Back: no CVA tenderness Skin General skin exam: elasticity normal and turgor normal Neuro General: oriented to person, oriented to place, oriented to time, patient oriented x3, moves all extremities, no focal motor deficits and CN's II-XI intact bilaterally Cranial nerves: Yes Equal, round and reactive pupils present Cognition (Neuro): normal cognition Extrem General: Yes full ROM, Yes no pedal edema and Yes no calf tenderness Right lower extremity: lower leg Details: pitting edema Details: 1+, ankle (small scab to medial ankle without surrounding erythema or warmth, no dng) and foot Details: normal capillary refill and vascular exam Details: dorsalis pedis pulse present, posterior tibial pulse present and normal capillary refill Psych Mental Status: mental status grossly normal Affect: normal affect Thought process: Normal thought process present Course Course Course Narrative: This is an RME: Additional HPI, ROS, PE not included below will be deferred to primary provider. RME assessment and note performed by: Olivia Melendez PA-C This is a 63-mbtt-ubk-male, with a hx of diabetes, HTN, HLD, DVT & PE, who presents to the ER with complaints of right lower leg pain and swelling for several months. Pt also with old healing wound - unable to say what this is from. +homans on the right. negative watts test on the right. No CP or SOB. Plan: Labs, US, further ER eval needed Medical Decision Making Medical Decision Making MDM Narrative: Patient is a 79-year-old Ug[place]an-speaking male with reported history of DM, DVT, PE, anemia, venous insufficiency, HTN presenting to the emergency department with report of right lower leg wound just above medial ankle with pitting edema for several months. On exam patient is awake, A+Ox3, VS WNL, afebrile, normal neurological exam without focal deficits, physical exam findings as above. Given reported symptoms and physical exam findings, initial differential includes but is not limited to cellulitis, DVT, foreign body right heel, diabetic ulcer. Labs unremarkable, no leukocytosis, slightly elevated ESR, normal CRP. Ultrasound notable for no evidence of DVT. X-ray is without evidence of foreign body to right foot. My interpretation is in agreement with the radiologist's interpretation. Feel patient is stable for discharge on p.o. antibiotics, advised follow up with PCP for re-evaluation. Return precautions discussed at bedside. Patient and son verbalized understanding of and agreement with plan. In-person customer engineer was utilized for all interactions, assessments, and discussions. Differential Diagnosis Differential Diagnoses: The differential diagnosis associated with the presentation includes as per [facility] Admission/Observation Consideration of admission/observation: Escalation of care including admission/observation considered Patient would have been admitted to the hospital had his clinical presentation warranted hospital admission. Lab Data 06/04/25 11:32 06/04/25 11:32 Labs: Lab Results 06/04/25 06/04/25 Range/Units 11:31 11:32 WBC 6.1 (4.8-10.8) X10*3/uL RBC 3.71 L (4.60-5.80) X10*6/uL Hgb 10.6 L (14.0-18.0) g/dl Hct 32.9 L (42.0-52.0) % MCV 88.7 (80.0-98.0) fL MCH 28.6 (27.0-33.0) pg MCHC 32.2 (31.0-36.0) g/dl RDW 14.7 (11.0-16.0) % Plt Count 186 (160-400) X10*3/uL MPV 10.3 (9.4-12.4) fL Immature Gran % (Auto) 0.2 (0.0-0.4) % Neut % (Auto) 61.5 (45-73) % Lymph % (Auto) 26.6 (20-40) % [place] % (Auto) 7.6 (2-11) % Eos % (Auto) 3.6 (0-4) % Baso % (Auto) 0.5 (0-2) % Lymph # (Auto) 1.6 (1.2-4.9) X10*3/uL [place] # (Auto) 0.5 (0.1-1.2) X10*3/uL Eos # (Auto) 0.2 (0.0-0.4) X10*3/uL Baso # (Auto) 0.0 (0.0-0.2) X10*3/uL Abs Immat Gran (auto) 0.01 (0.00-0.03) X10*3/uL Absolute Neuts (auto) 3.8 (2.0-8.3) x10*3/uL Absolute Nucleated RBC 0.000 (0.0-0.012) X10*3/uL Nucleated RBC % (auto) 0.0 (0.0-0.2) /100WBC ESR 25 H (0-15) MM/HR Sodium 141 (135-145) mmol/L Potassium 4.5 (3.3-5.1) mmol/L Chloride 109 H (96-108) mmol/L Carbon Dioxide 28 (22-29) mmol/L Anion Gap 9 L (12-20) BUN 30 H (9-16) mg/dL Creatinine 0.75 (0.5-1.4) mg/dL Estim Creat Clear Calc 87.8 Estimated GFR > 60 POC Glucose 103 (60-115) mg/dL Random Glucose 110 (60-115) mg/dL Calcium 8.8 (8.4-10.2) mg/dL Magnesium 2.0 (1.6-2.6) mg/dL Total Bilirubin 0.4 (0.0-1.0) mg/dL Direct Bilirubin 0.2 (0.0-0.5) mg/dL AST 17 (5-37) U/L ALT 8 (0-40) U/L Alkaline Phosphatase 87 (39-117) U/L C-Reactive Protein 0.24 (< or = 0.50) mg/dL Total Protein 7.0 (6.5-8.0) g/dL Albumin 3.9 (3.5-5.0) g/dL Discharge Plan Discharge Clinical Impression: Diabetic ulcer of ankle Patient Disposition: Home, Self-Care Instructions: Foot Ulcers in a Person with Diabetes (ED) Additional Instructions: You have been evaluated in the emergency department today for skin infection, also known as cellulitis. Please take your prescribed antibiotics as directed for the full course of the medication. You can use Tylenol or ibuprofen per package instructions every 6 hours as needed for pain. If necessary, you can alternate these medications so that you can take one medication every 3 hours. For instance, at noon take ibuprofen, then at 3:00 p.m. take Tylenol, then at 6:00 p.m. take ibuprofen. Please schedule an appointment for follow-up with your primary care physician as soon as possible. Return to the emergency department if you experience recurrent vomiting, fevers greater than 100.4? F, increasing area of redness, warmth around the area, foul-smelling discharge from the area, increased tenderness around the area, or any other concerning symptoms. Prescriptions: New cephalexin 500 mg capsule 500 mg PO QID Qty: 28 0RF No Action lisinopril 20 mg tablet 1 tab PO QPM glipizide 5 mg tablet extended release 24hr 1 tab PO DAILY pioglitazone [Actos] 45 mg tablet 1 tab PO QAM aspirin 81 mg tablet,delayed release (DR/EC) 1 tab PO QPM simvastatin 40 mg tablet 1 tab PO QPM metformin 1,000 mg tablet 1 tab PO BID ferrous sulfate [iron] 325 mg (65 mg iron) Tablet 325 mg PO BID Qty: 60 3RF (DME) lancets [TRUEplus Lancets] 33 gauge misc See Rx Instructions Not Applicable BID Qty: 100 Rx Instructions: As directed (DME) FreeStyle Lite Strips Strip See Rx Instructions Not Applicable BID Qty: 10 Rx Instructions: As directed Print Language: Ugandan
[2025-06-04 11:20] VITALS: BP 125/72; PULSE 66; RESP 16; TEMP 36.6; O2SAT 96; BMI 38.8
[2025-06-04 11:35] LABS: MANUAL DIFF FLAG NO
[2025-06-04 11:37] LABS: Glucose, Whole Blood 103 mg/dL (60-115)
[2025-06-04 11:38] LABS: Hematocrit 32.9 % (42.0-52.0); Hemoglobin 10.6 g/dl (14.0-18.0); Imm Gran Abs Auto 0.01 X10*3/uL (0.00-0.03); Imm Gran Pct Auto 0.2 % (0.0-0.4); Lymphocytes Absolute Auto 1.6 X10*3/uL (1.2-4.9); Mean Corpuscular HGB Conc 32.2 g/dl (31.0-36.0); Mean Corpuscular Hemoglobin 28.6 pg (27.0-33.0); Mean Corpuscular Volume 88.7 fL (80.0-98.0); NRBC Abs Auto 0.000 X10*3/uL (0.0-0.012); NRBC Pct Auto 0.0 /100WBC (0.0-0.2); Platelet Count 186 X10*3/uL (160-400); Red Blood Count 3.71 X10*6/uL (4.60-5.80); White Blood Count 6.1 X10*3/uL (4.8-10.8)
[2025-06-04 12:06] LABS: Alanine Aminotransferase 8 U/L (0-40); Albumin Level 3.9 g/dL (3.5-5.0); Alkaline Phosphatase 87 U/L (39-117); Anion Gap 9 (12-20); Aspartate Amino Transferase 17 U/L (5-37); Blood Urea Nitrogen 30 mg/dL (9-16); Calcium 8.8 mg/dL (8.4-10.2); Carbon Dioxide 28 mmol/L (22-29); Chloride 109 mmol/L (96-108); Creatinine Clr Calc Pharmacy 87.8; Estimated Glomerular Filt Rate > 60; Magnesium 2.0 mg/dL (1.6-2.6); Potassium 4.5 mmol/L (3.3-5.1); Sodium 141 mmol/L (135-145); Total Protein 7.0 g/dL (6.5-8.0)
[2025-06-04 12:27] VITALS: BP 130/75; PULSE 60; RESP 16; TEMP 36.6; O2SAT 96
--- OUTSIDE RECORDS SUMMARY | 2025-06-04 13:20 | XMS_ITS | Patient Health Record ---
Author Organization [facility] Address [address] [place] [address] Care Team Providers Care Ranch Helper Name Role Phone Nata Espinosa MD, Eleazar Primary Care Provide r Unavailable Yvan Hopkins Unavailable [phone] Reason For Referral No Information Medications Medication SIG (Take, Route, Frequency, Duration) Notes Start Date End Date Status Silver sulfADIAZINE 1 % APLIQUE AL AREA AFECTADA TOPICALLY DOS VECES AL WAGNER TO RIGHT FOOT External; Duration: 15 Active Pioglitazone HCl 45 MG 1 tablet Orally Once a day 02/16/2017 Active metFORMIN HCl 1000 MG 1 tablet with meal s Orally Twice a day 02/16/2017 Active Doxycycline Hyclate 100 MG TOME [place] CAPS AXEL POR VIA ORAL DOS VECES AL WAGNER Oral; Duration: 7 Active Aspirin 81 MG 1 tablet Orally Once a day 7 Active Lisinopril 20 MG Orally 02/16/2017 Ac tive glipiZIDE XL 10 MG 1 tablet Orally Once a day 01/26 Active Ciclopirox Olamine 0.77 % 1 application to affected area Externally Twice a day; Duration: 30 days Active Simvastatin 40 MG 1 tablet in the even ing Orally Once a day 02/16/2017 Active Extra Depth Orthopedic Shoes (1 Pair) with Customized Heat Molded Multidensity Innersoles (3 Pair) as directed Dx: NIDDM/PVD (E11.59), Hammertoe Foot Deformity (M20.41,M20.42), Preulcerative Skin Lesion(s) (L85.1) Active Immunizations Vaccine Route Administration Date Status Comme nts Influenza Unknown 10/18/2016 Administered Influenza Unknown 08/17/2017 Refused has not gotten yet this year Pneumococcal Unknown 10/18/2016 Administered Social History Tobacco Use: Social History Observation Description Date Details (start date - stop date) Former Smoker NA - NA Tobacco Use/Smoking Question Answer Notes Are you a: former smoker When did you stop smoking? yrs ago How long has it been since y ou last smoked? 1-3 months Additional Findings: Tobacco Non-User Cu rrent non-smoker,Ex-light cigarette smoker (1-9/day) Tobacco use other than smoking: Question Answer Notes Are you an other tobacco user? No Problems Problem Type SNOMED Code ICD Code Onset Dates Problem Status W/U Status Risk Notes Problem Type 2 diabetes mellitus with peripheral angiopathy (065998009) Type 2 diabetes mellitus with diabetic peripheral angiopathy without gangrene (E11.51) Active confirmed Plan Of Treatment Pending Test Test Name Order Date [id number] NAIL, 6 OR MORE 02/16/2017 [id number] NAIL, 6 OR MORE 05/18/2017 67430-DVWMVNB NAIL, 6 OR MORE 08/17/2017 01045-TEATMLY NAIL, 6 OR MORE 11/16/2017 70822-OLRGEKS NAIL, 6 OR MORE 02/05/2018 61064-GJTKJPX NAIL, 6 OR MORE 04/16/2018 54226-PDRSVJU NAIL, 6 OR MORE 06/27/2018 82792-OUVXZCS NAIL, 6 OR MORE 09/13/2018 07838-ECVIWNS NAIL, 6 OR MORE 02/13/2019 63288-RUQSMMV NAIL, 6 OR MORE 05/23/2019 34515- Debride <25 sq cm 08/17/2017 00282-RKNU SKIN LESIONS, OVER 4 08/17/20 17 44627-BJNV SKIN LESIONS, OVER 4 02/17/20 17 33803-TLWK SKIN LESIONS, OVER 4 05/18/20 17 72795-JCXC SKIN LESIONS, OVER 4 02/06/20 18 28019-OLGU SKIN LESIONS, OVER 4 02/14/20 19 04247-CERL SKIN LESIONS, OVER 4 09/13/20 18 80867-VEQP SKIN LESIONS, OVER 4 06/27/20 18 95812-YIKS SKIN LESIONS, OVER 4 04/16/20 18 78642-HQFF SKIN LESIONS, OVER 4 05/23/20 19 02319-VKGO SKIN LESIONS, OVER 4 11/16/20 17 02091- Biopsy of skin lesion 11/16/2017 Insurance Providers Payer Name Payer Address Payer Phone Subscriber Number Group Number Insured Name Patient Relationship to Insured Coverage Start Date Coverage End Date Medicare National Govt Svcs Inc [address] [place] [address] [id number] Chuy Noble Self - patient is the insured 8 Medical (General) History Medical History History ICD Code Cholesterol Diabetic Gallstones Headaches Hypertension ulcer Varicose veins Surgical History Surgery Date(Month/Year) gall stones Hospitalization History Reason Date(Month/Year) [facility] wound care ulcer right foot 02/02/20 [facility] 01/22/2017 [facility] Right foot ulcerartion 08/10/17 [facility] foot issues 12/2017
--- OUTSIDE RECORDS SUMMARY | 2025-06-04 13:20 | XMS_ITS | Encounter Summary ---
Author Organization [employer] [facility] Address [address] [place] [address] Care Team Providers Care Hydro Station Operator Name Role Phone Eleazar Aguillon MD Primary Care Provide r Encounter Details Date Type Department Care Team (Late st Contact Info) Description 06/12/2023 Orders Only [facility] MEDIC[facility] [address] [place] [address] Tasha Finn LPN Social History Tobacco Use Types Packs/Day Years Used Date Smoking Tobacco: Never Assessed Sex and Gender Information Value Date Recorded Sex Assigned at Male 09/26/2022 10:16 AM EDT Legal Sex Male 10:16 AM EDT Gender Identity Male 09/26/2022 10:16 AM EDT Sexual Orientation Choose not to disclose 2021 10:16 AM EDT documented as of this encounter Plan of Treatment Upcoming Encounters Date Type Department Care Team (Late st Contact Info) Description 06/26/2025 2:00 PM EDT Office Visit [facility] MED[facility] [address] [place] [address] Eleazar Aguillon MD [address] [place] [address] documented as of this encounter Visit Diagnoses Not on filedocumented in this encounter Care Teams Hydro Station Operator Relationship Specialty Start Date End Date Eleazar Aguillon MD [address] [place] [address] PCP - General Internal Medicine 01/01/15 documented as of this encounter
--- OUTSIDE RECORDS SUMMARY | 2025-06-04 13:20 | XMS_ITS | Patient Health Record ---
Author Organization Jake Rivera III, MD Address [address] [place] [address] Care Team Providers Care Personal Caregiver Name Role Phone Jacob PARK, Eleazar Primary Care Provide r Unavailable Jake Rivera Unavailable [phone] Allergies No Known Allergies Reason For Referral No Information Medications Medication SIG (Take, Route, Fr equency, Duration) Notes Start Date End Date Status Simvastatin 40 MG 1 tablet in the even ing Orally Once a day Active metFORMIN HCl 1000 MG 1 tablet with a me al Orally Once a day Active Pioglitazone HCl 45 MG 1 tablet Orally Once a day Active glipiZIDE 5 MG 1 tablet 30 minutes before breakfast Orally Once a day Acti ve Lisinopril 20 MG 1 tablet Orally Once a day Active Aspirin 81 MG 1 tablet Orally Once a day Active Eliquis 5 MG as directed Orally o ne in the AM one in the PM Active Social History Tobacco Use: Social History Observation Description Date Details (start date - stop date) Never Smoker NA - NA Tobacco Use/Smoking Question Answer Notes Patient is a nonsmoker Additional Findings: Tobacco Non-User Aggressive non-smoker Alcohol Screen Question Answer Notes Did you have a drink containing alcohol in the p ast year? No Points 0 Interpretation Negative Problems Problem Type SNOMED Code ICD Code Onset Dates Problem Status W/U Status Risk Notes Problem Diabetes (E11.9) Active confirmed Problem Diabetes (E11.9) Active confirmed He has been compliant with all of his medications. He has the medications after discharge from the hospital. No change in his regimen was needed. Problem Hypertension (88618287) Hypertension (I10) Active confirmed Problem Hypertension (93095148) Hypertension (I10) Active confirmed His blood pressure is stable at 122/74. No change in his regimen as needed. Problem 447549328 Mixed hyperlipidemia (E78.2) Active confirmed He was continued on current medications. His lipids will be followed by primary care at [facility]. Problem [id number] Obesity (BMI 30-39.9) (E66.9) Active confirmed We have discussed diet and nutrition. I recommended he lose weight and a rate of 1/2 pound per week for diet restricted in fact calories and sodium combine was regular exercise. Problem High cholesterol (06009728) High cholesterol (E78.00) Active confirmed Problem 51699296 Multiple subsegmental pulmonary emboli without acute cor pulmonale (I26.94) Active confirmed History of symptoms today of cough or chest pain or hemoptysis. Plan Of Treatment No Information Insurance Providers Payer Name Payer Address Payer Phone Subscriber Number Group Number Insured Name Patient Relationship to Insured Coverage Start Date Coverage End Date MEDICARE NGS [address] [place] [phone] [id number] Chuy Corley Self - patient is the insured Medical (General) History Medical History History ICD Code Diabetes E11.9 Hypertension I10 Hyperlipidemia DVT with pulmonary embolism June 2021 Surgical History Surgery Date(Month/Year) hernia 2010 Hospitalization History Reason Date(Month/Year) DVT 07/03/21 Pulmonary emboli 07/03/21
[2025-06-04 14:51] VITALS: BP 135/85; PULSE 56; RESP 16; TEMP 36.9; O2SAT 95
[2025-06-04 15:17] VITALS: BP 135/85; PULSE 56; RESP 16; TEMP 36.9; O2SAT 95
== END 2025-06-04 15:22 | disposition home or self-care (01) ==
PROVIDERS: Physician Assistant Medical; Registered Nurse Emergency; Emergency Provider Emergency Medicine
DX: E11.621 Type 2 diabetes mellitus with foot ulcer (principal); M79.671 Pain in right foot; R60.0 Localized edema; Z79.899 Other long term (current) drug therapy
CPT/HCPCS: 36415; 73630; 80048; 80076; 82947; 83735; 85025; 85652; 86140; 93971; 99283; 99284

== ENCOUNTER → 2025-06-04 11:25 | Outpatient (BNV) | payer MEDICARE, MEDICAID, SELFPAY | PROVIDERS: Emergency Provider Emergency Medicine; Visit Provider Radiology Diagnostic Radiology | DX: M71.21 Synovial cyst of popliteal space [Baker], right knee (principal); M85.871 Other specified disorders of bone density and structure, right ankle and foot | CPT/HCPCS: 73630 ==

== ENCOUNTER 2025-06-20 10:25 | Emergency (ER) | payer MEDICARE, MEDICAID, SELFPAY ==
--- NOTE | 2025-06-20 | ECG_ITS ---
Test Reason : EXTREMITY WITH INFLAMMATION Blood Pressure : */* mmHG Vent. Rate : 59 BPM Atrial Rate : 59 BPM P-R Int : 176 ms QRS Dur : 108 ms QT Int : 420 ms P-R-T Axes : -11 -40 8 degrees QTcB Int : 415 ms Sinus bradycardia Left axis deviation Abnormal ECG When compared with ECG of 02-Jul-2021 09:51, No significant change was found Referred By: Generic ED Physician Electronically Signed By: Oswaldo Torres
[2025-06-20 10:33] VITALS: BP 132/68; PULSE 55; RESP 18; TEMP 36.6; O2SAT 97; BMI 39.6
[2025-06-20 10:56] LABS: MANUAL DIFF FLAG NO
[2025-06-20 10:57] LABS: Hematocrit 31.8 % (42.0-52.0); Hemoglobin 10.3 g/dl (14.0-18.0); Imm Gran Abs Auto 0.02 X10*3/uL (0.00-0.03); Imm Gran Pct Auto 0.3 % (0.0-0.4); Lymphocytes Absolute Auto 1.6 X10*3/uL (1.2-4.9); Mean Corpuscular HGB Conc 32.4 g/dl (31.0-36.0); Mean Corpuscular Hemoglobin 28.7 pg (27.0-33.0); Mean Corpuscular Volume 88.6 fL (80.0-98.0); NRBC Abs Auto 0.000 X10*3/uL (0.0-0.012); NRBC Pct Auto 0.0 /100WBC (0.0-0.2); Platelet Count 188 X10*3/uL (160-400); Red Blood Count 3.59 X10*6/uL (4.60-5.80); White Blood Count 6.8 X10*3/uL (4.8-10.8)
[2025-06-20 11:10] LABS: Anion Gap 11 (12-20); Blood Urea Nitrogen 26 mg/dL (9-16); Calcium 8.8 mg/dL (8.4-10.2); Carbon Dioxide 27 mmol/L (22-29); Chloride 107 mmol/L (96-108); Creatinine Clr Calc Pharmacy 78.4; Estimated Glomerular Filt Rate > 60; Potassium 4.7 mmol/L (3.3-5.1); Sodium 140 mmol/L (135-145)
--- OUTSIDE RECORDS SUMMARY | 2025-06-20 11:13 | XMS_ITS | Patient Health Record ---
Author Organization [facility] Address [address] [place] [address] Care Team Providers Care Water Well Driller Name Role Phone Nata Espinosa MD, Eleazar Primary Care Provide r Unavailable Yvan Hopkins Unavailable [phone] Reason For Referral No Information Medications Medication [...] Type 2 diabetes mellitus with peripheral angiopathy (390523479) Type 2 diabetes mellitus with diabetic peripheral angiopathy without gangrene (E11.51) Active confirmed Plan Of Treatment Pending Test Test Name Order Date [id number] NAIL, 6 OR MORE 02/16/2017 81552-INSXCAQ NAIL, 6 OR MORE 05/18/2017 63471-ERZKTQI NAIL, 6 OR MORE 08/17/2017 28797-PPHYNPD NAIL, 6 OR MORE 11/16/2017 94102-JBIAIPG NAIL, 6 OR MORE 02/05/2018 88091-DCRAZZL NAIL, 6 OR MORE 04/16/2018 36927-GKNQCLJ NAIL, 6 OR MORE 06/27/2018 85374-UYNLJOF NAIL, 6 OR MORE 09/13/2018 88064-NGBLPBS NAIL, 6 OR MORE 02/13/2019 26588-BBWJGIK NAIL, 6 OR MORE 05/23/2019 79917- Debride <25 sq cm 08/17/2017 26100-SEHW SKIN LESIONS, OVER 4 08/17/20 17 45729-GOXF SKIN LESIONS, OVER 4 02/17/20 17 36020-JLSG SKIN LESIONS, OVER 4 05/18/20 17 08606-GPWD SKIN LESIONS, OVER 4 02/06/20 18 50370-LENF SKIN LESIONS, OVER 4 02/14/20 19 27489-UKIZ SKIN LESIONS, OVER 4 09/13/20 18 45842-SUUW SKIN LESIONS, OVER 4 06/27/20 18 75037-RAOE SKIN LESIONS, OVER 4 04/16/20 18 06817-JIZA SKIN LESIONS, OVER 4 05/23/20 19 47943-IOGV SKIN LESIONS, OVER 4 11/16/20 17 95998- Biopsy of skin lesion 11/16/2017 Insurance Providers Payer Name Payer Address Payer Phone Subscriber Number Group Number Insured Name Patient Relationship to Insured Coverage Start Date Coverage End Date Medicare National Govt Svcs Inc [address] [place] [address] [id number] Chuy Noble Self - patient is the insured 8 Medical (General) History Medical History History ICD Code Cholesterol Diabetic Gallstones Headaches Hypertension ulcer Varicose veins Surgical History Surgery Date(Month/Year) gall stones Hospitalization History Reason Date(Month/Year) [facility] wound care ulcer right foot 02/02/20 [facility] 01/22/2017 [facility] Right foot ulcerartion 08/10/17 [facility] foot issues 12/2017
--- OUTSIDE RECORDS SUMMARY | 2025-06-20 11:13 | XMS_ITS | Encounter Summary ---
Author Organization [employer]) [facility] Address [address] [facility] [address] [place] [address] Care Team Providers Care Shelver Name Role Phone Eleazar Aguillon MD Primary Care Provide r Encounter Details Date Type Department Care Team (Late st Contact Info) Description 06/12/2023 Orders Only [facility] [address] [place] [address] Tasha Finn LPN Social History Tobacco Use [...] Care Team (Late st Contact Info) Description 07/01/2025 2:00 PM EDT Office Visit [facility] [address] [place] [address] Eleazar Aguillon MD [address] [place] [address] documented as of this encounter Visit Diagnoses Not on filedocumented in this encounter Care Teams Shelver Relationship Specialty Start Date End Date Eleazar Aguillon MD [address] [place] [address] PCP - General Internal Medicine 01/01/15 documented as of this encounter
--- OUTSIDE RECORDS SUMMARY | 2025-06-20 11:13 | XMS_ITS | Patient Health Record ---
Author Organization Jake Rivera III, MD Address [address] [facility] [place] [address] Care Team Providers Care Paraprofessional Aide Teacher Name Role Phone Jacob PARK, Eleazar Primary Care Provide r Unavailable Jake Rivera Unavailable [phone] Allergies No Known Allergies Reason For Referral [...] Status W/U Status Risk Notes Problem Type II diabetes mellitus without complication (856727485) Diabetes (E11.9) Active confirmed Problem Type II diabetes mellitus without complication (381029216) Diabetes (E11.9) Active confirmed He has been compliant with all of his medications. He has the medications after discharge from the hospital. No change in his regimen was needed. Problem Hypertension (44081475) Hypertension (I10) Active confirmed Problem Hypertension (43682967) Hypertension (I10) Active confirmed His blood pressure is stable at 122/74. No change in his regimen as needed. Problem 398095939 Mixed hyperlipidemia (E78.2) Active confirmed He was continued on current medications. His lipids will be followed by primary care at [facility]. Problem [id number] Obesity (BMI 30-39.9) (E66.9) Active confirmed We have discussed diet and nutrition. I recommended he lose weight and a rate of 1/2 pound per week for diet restricted in fact calories and sodium combine was regular exercise. Problem High cholesterol (41098033) High cholesterol (E78.00) Active confirmed Problem 88078222 Multiple subsegmental pulmonary emboli without acute cor pulmonale (I26.94) Active confirmed History of symptoms today of cough or chest pain or hemoptysis. Plan Of Treatment No Information Insurance Providers Payer Name Payer Address Payer Phone Subscriber Number Group Number Insured Name Patient Relationship to Insured Coverage Start Date Coverage End Date MEDICARE NGS [address] [place] [phone] [id number] Chuy Corley Self - patient is the insured Medical (General) History Medical History History ICD Code Diabetes E11.9 Hypertension I10 Hyperlipidemia DVT with pulmonary embolism June 2021 Surgical History Surgery Date(Month/Year) hernia 2010 Hospitalization History Reason Date(Month/Year) DVT 07/03/21 Pulmonary emboli 07/03/21
[2025-06-20 11:18] LABS: B Type Natriuretic Peptide 52 pg/mL (<100)
--- NOTE | 2025-06-20 11:54 | ED.EXTPRO ---
HPI - Extremity Problem General Chief complaint: Extremity Problem Stated complaint: Pain in Both Feet Time Seen by Provider: 06/20/25 11:11 Source: patient and family (son) Mode of arrival: ambulatory Limitations: no limitations (Patient understood adequate Mongolian and son was at bedside as well) History of Present Illness ED Provider: HPI Narrative: 79-year-old male representing to have his also on the right lower extremity evaluated, just finished a course of antibiotics cephalexin 500 mg 4 times daily, 7 day course, no fevers or chills no drainage, the ulceration is still there so they are wondering whether patient has not infection. Related Data Home Medications ?Medication ?Instructions ?Recorded ?Confirmed aspirin 81 mg tablet,delayed 1 tab PO QPM 07/02/21 04/30/24 release glipizide 5 mg tablet, extended 1 tab PO DAILY 07/02/21 04/30/24 release 24 hr lisinopril 20 mg tablet 1 tab PO QPM 07/02/21 04/30/24 metformin 1,000 mg tablet 1 tab PO BID 07/02/21 04/30/24 pioglitazone 45 mg tablet (Actos) 1 tab PO QAM 07/02/21 04/30/24 simvastatin 40 mg tablet 1 tab PO QPM 07/02/21 04/30/24 blood sugar diagnostic (FreeStyle #10 ea 09/14/21 04/30/24 Lite Strips) lancets 33 gauge (TRUEplus Lancets) #100 ea 09/14/21 04/30/24 Previous Rx's ?Medication ?Instructions ?Recorded ferrous sulfate 325 mg (65 mg 325 mg PO BID #60 tabs 10/23/24 iron) tablet (iron) cephalexin 500 mg capsule 500 mg PO QID #28 caps 06/04/25 compress.stocking,knee,reg,lrg #12 ea 06/20/25 Allergies Allergy/AdvReac Type Severity Reaction Status Date / Time No Known Allergies Allergy Mild N/A Verified 06/20/25 10:37 Review of Systems Constitutional: Constitutional: Reports as per [facility] Past Medical History Medical History History of kidney stones FRANCISCO J (iron deficiency anemia) Multiple subsegmental pulmonary emboli without acute cor pulmonale Venous insufficiency Obesity High cholesterol Hypertension Diabetes Surgical History History of colonoscopy Family History Family History Sister Stomach cancer Brother HTN (hypertension) Diabetes Mother Ovarian cancer Social History Social History Household Members: Spouse Housing: House Do you presently have visiting nurse or other home services: No Alcohol intake: former Comment: room is next to rn station Patient Tobacco Use Status: Never used Tobacco Smoked in Last 30 Days: No Use of substances other than those prescribed or required for medical reasons: No Advance Directives: No Advance Directives Information Provided: Yes Advance Directives Date on File: 07/02/21 Do you have a plan to hurt others: No Plan service: No Current occupational status: retired Physical Exam Vital Signs: Vital Signs: Last Vital Signs Temp 97.8 F 06/20/25 10:33 Pulse 55 06/20/25 10:33 Resp 18 06/20/25 10:33 BP 132/68 06/20/25 10:33 Pulse Ox 97 06/20/25 10:33 O2 Del Method Room Air 06/20/25 10:33 BMI result Body Mass Index 39.6 Const: Other: Gen: ?Overall well-appearing patient MSK: Bilateral varus knees, full range of motion both hips, able to flex and extend both knees symmetrically, no edema or swelling of the ankles, difficult to palpate dorsalis pedis pulses, dopplerable posterior tibialis bilaterally and popliteal pulses, otherwise warm extremities Skin: Patient has dependent leg edema and chronic venous stasis ulcer proximally a quarter-size on the distal right calf, wound is dry, no necrotic tissue, no drainage Neuro: ?Alert and oriented x3, moving upper and lower extremities symmetrically, Medical Decision Making Medical Decision Making MDM Narrative: 79-year-old male presenting with what appears to be venous stasis ulcer, just finished a course of antibiotics, provider that saw him diagnosed him with diabetic ulcer, this is an ulcer in a diabetic but this particular presentation appears to be more of a superficial venous stasis ulcer and not a diabetic foot ulcer which tend to be deeper and more plantar, patient continues to drank in excess of 5 drinks a week, needs to wear compression stockings and I spoke to case management to set up wet-to-dry dressings, this has been explained to son the patient, I wanted to involve the lapping machine set up operator but they spoke and understood Mongolian to converse with the without any limitations for their visit. Differential Diagnosis Differential Diagnoses: The differential diagnosis associated with the presentation includes (Diabetic foot ulcer, venous stasis ulcer, DVT, arterial insufficiency, abscess, cellulitis) Admission/Observation Consideration of admission/observation: Escalation of care including admission/observation considered 2022 Emergency Medicine Coding Guide from [employer] on 06/20/2025 All calculations should be rechecked by clinician prior to use RESULT SUMMARY: 4 Estimated Level of Service Problems: Moderate (4) Risk: Moderate (4) Data: Limited (3) NARRATIVE MDM: This patient's problem complexity is Moderate as patient: with chronic illness(es) with exacerbation/progression/side effects of treatment. This patient's risk is Moderate due to: overall presentation requiring evaluation for a potentially Moderate-risk process. This patient's data complexity is Limited. INPUTS: Number and Complexity ?> 3 = 4: chronic illness with exacerbation (c) Risk level ?> 3 = Moderate Tests ordered ?> 1 = 1 Tests results reviewed (excluding labs) ?> 1 = 1 Prior external notes reviewed ?> 0 = 0 Assessment requiring and independent historian ?> 0 = No Independent interpretation of tests ?> 0 = No Discussed management/test interpretation w/external professional ?> 0 = No Lab Data [facility] Lab Attestation statement: I reviewed the patient's lab results. 06/20/25 10:48 06/20/25 10:48 Labs: Lab Results 06/20/25 Range/Units 10:48 WBC 6.8 (4.8-10.8) X10*3/uL RBC 3.59 L (4.60-5.80) X10*6/uL Hgb 10.3 L (14.0-18.0) g/dl Hct 31.8 L (42.0-52.0) % MCV 88.6 (80.0-98.0) fL MCH 28.7 (27.0-33.0) pg MCHC 32.4 (31.0-36.0) g/dl RDW 14.6 (11.0-16.0) % Plt Count 188 (160-400) X10*3/uL MPV 10.5 (9.4-12.4) fL Immature Gran % (Auto) 0.3 (0.0-0.4) % Neut % (Auto) 64.7 (45-73) % Lymph % (Auto) 22.7 (20-40) % [place] % (Auto) 6.0 (2-11) % Eos % (Auto) 5.4 H (0-4) % Baso % (Auto) 0.9 (0-2) % Lymph # (Auto) 1.6 (1.2-4.9) X10*3/uL [place] # (Auto) 0.4 (0.1-1.2) X10*3/uL Eos # (Auto) 0.4 (0.0-0.4) X10*3/uL Baso # (Auto) 0.1 (0.0-0.2) X10*3/uL Abs Immat Gran (auto) 0.02 (0.00-0.03) X10*3/uL Absolute Neuts (auto) 4.4 (2.0-8.3) x10*3/uL Absolute Nucleated RBC 0.000 (0.0-0.012) X10*3/uL Nucleated RBC % (auto) 0.0 (0.0-0.2) /100WBC Sodium 140 (135-145) mmol/L Potassium 4.7 (3.3-5.1) mmol/L Chloride 107 (96-108) mmol/L Carbon Dioxide 27 (22-29) mmol/L Anion Gap 11 L (12-20) BUN 26 H (9-16) mg/dL Creatinine 0.85 (0.5-1.4) mg/dL Estim Creat Clear Calc 78.4 Estimated GFR > 60 Random Glucose 123 H (60-115) mg/dL Calcium 8.8 (8.4-10.2) mg/dL B-Natriuretic Peptide 52 (<100) pg/mL Chronic Conditions Patient?s care impacted by: Diabetes and Hypertension Discharge Plan Discharge Clinical Impression: Venous stasis ulcer limited to breakdown of skin with varicose veins, Type 2 diabetes mellitus Patient Disposition: Home, Self-Care Additional Instructions: Please keep legs elevated with not in use, I recommend compression stockings, the ulcer itself is most consistent with venous stasis ulcer, he has a superficial ulcers that forearm due to poor venous drainage, this is consistent with the patient's physical examination, reviewed his prior blood work, today's blood work and prior ultrasound, there was no indication for further imaging at this time, I have asked our case management provider to set up VNA visits for every other day dressing changes wet-to-dry for the next 2 weeks, I would like you to continue to follow up with the PCP, and once the also starts healing up more to start using compression stockings. His PCP needs to be involved in this care and follow up please make an appointment. Also you have to cut down on alcohol intake as it contributes to swelling your legs, no more than 5 drinks a week. Prescriptions: New (DME) compress.stocking,knee,reg,lrg Misc See Rx Instructions .Route Qty: 12 0RF Rx Instructions: As directed No Action lisinopril 20 mg tablet 1 tab PO QPM glipizide 5 mg tablet extended release 24hr 1 tab PO DAILY pioglitazone [Actos] 45 mg tablet 1 tab PO QAM aspirin 81 mg tablet,delayed release (DR/EC) 1 tab PO QPM simvastatin 40 mg tablet 1 tab PO QPM metformin 1,000 mg tablet 1 tab PO BID ferrous sulfate [iron] 325 mg (65 mg iron) Tablet 325 mg PO BID Qty: 60 3RF cephalexin 500 mg capsule 500 mg PO QID Qty: 28 0RF (DME) lancets [TRUEplus Lancets] 33 gauge misc See Rx Instructions Not Applicable BID Qty: 100 Rx Instructions: As directed (DME) FreeStyle Lite Strips Strip See Rx Instructions Not Applicable BID Qty: 10 Rx Instructions: As directed Print Language: Arabic
[2025-06-20 12:30] VITALS: BP 133/62; PULSE 57; RESP 16; TEMP 36.6; O2SAT 97
--- NOTE | 2025-06-20 12:47 | MHC.CM.ED ---
Received case management consult from Dr Viveros. Patient has venous stasis ulcer that Dr Viveros would like followed up with VNA for. Referral made to [facility]. Patient will d/c home. Continue to monitor for d/c needs.
== END 2025-06-20 12:35 | disposition home or self-care (01) ==
PROVIDERS: Emergency Provider Emergency Medicine; PCP Internal Medicine
DX: I83.018 Varicose veins of right lower extremity with ulcer other part of lower leg (principal); I83.12 Varicose veins of left lower extremity with inflammation; M79.672 Pain in left foot; M79.671 Pain in right foot; R00.1 Bradycardia, unspecified; R06.02 Shortness of breath; E11.9 Type 2 diabetes mellitus without complications; Z79.84 Long term (current) use of oral hypoglycemic drugs; Z79.899 Other long term (current) drug therapy
CPT/HCPCS: 36415; 80048; 83880; 85025; 93005; 99283; 99284

== ENCOUNTER → 2025-06-20 11:24 | Outpatient (BNV) | payer MEDICARE, MEDICAID, SELFPAY | PROVIDERS: Emergency Provider Emergency Medicine; PCP Internal Medicine; Visit Provider Internal Medicine Cardiovascular Disease | DX: R00.1 Bradycardia, unspecified (principal) | CPT/HCPCS: 93010 ==

== ENCOUNTER 2025-07-07 13:21 | Outpatient (REF) | payer MEDICARE, MEDICAID, SELFPAY ==
--- NOTE | ~2025-07-07 | US_ITS ---
EXAMINATION: US LOWER EXTREMITY VEINS LIMITED FOLLOW UP RIGHT HISTORY: right leg swelling COMPARISON: Comparison is made with the prior examination dated 06/04/2025. TECHNIQUE: Duplex and color Doppler sonographic examination of the deep venous system of the right lower extremity was performed. FINDINGS: The common femoral, superficial femoral, and popliteal veins are patent demonstrating normal compressibility, spontaneous flow, and augmentation. There is a normal color and spectral Doppler waveform appearance of the visualized deep venous system above the knee. The posterior tibial and peroneal veins are patent. US/US venous duplex LE RT IMPRESSION: No evidence of acute DVT in the right lower extremity. Electronically signed by: Jake Owen MD 07/07/2025 02:22 PM EDT
--- OUTSIDE RECORDS SUMMARY | 2025-07-07 13:31 | XMS_ITS | Encounter Summary ---
Author Organization [employer] Address [address] [place] [address] 7[address] [place] [address] Care Team Providers Care Billing Customer Service Representative Name Role Phone Eleazar Aguillon MD Primary Care Provide r Encounter Details Date Type Department Care Team (Late st Contact Info) Description 06/12/2023 Orders Only [facility] MED[facility]INE [address] [place] [address] [phone] Tasha Finn LPN Social History Tobacco Use [...] Care Team (Late st Contact Info) Description 08/14/2025 1:00 PM EDT Office Visit [facility] [address] [place] [id number] Eleazar Aguillon MD [address] [place] [phone] documented as of this encounter Visit Diagnoses Not on filedocumented in this encounter Care Teams Billing Customer Service Representative Relationship Specialty Start Date End Date Eleazar Aguillon MD [address] [place] [address] [phone] PCP - General Internal Medicine 01/01/15 [facility] 06/21/25 documented as of this encounter
--- OUTSIDE RECORDS SUMMARY | 2025-07-07 13:31 | XMS_ITS | Patient Health Record ---
Author [facility] Address [address] [facility] [place] [address] Care Team Providers Care Field Enumerator Name Role Phone Nata Espinosa MD, Eleazar Primary Care Provide r Unavailable Yvan Hopkins Unavailable [phone] Reason For Referral No Information Medications Medication [...] Notes Problem Type 2 diabetes mellitus with diabetic peripheral angiopathy without gangrene (E11.51) Active confirmed Plan Of Treatment Pending Test Test Name Order Date [id number] NAIL, 6 OR MORE 02/16/2017 [id number] NAIL, 6 OR MORE 05/18/2017 [id number] NAIL, 6 OR MORE 08/17/2017 [id number] NAIL, 6 OR MORE 11/16/2017 [id number] NAIL, 6 OR MORE 02/05/2018 [id number] NAIL, 6 OR MORE 04/16/2018 [id number] NAIL, 6 OR MORE 06/27/2018 [id number] NAIL, 6 OR MORE 09/13/2018 [id number] NAIL, 6 OR MORE 02/13/2019 28967-MZHIPEL NAIL, 6 OR MORE 05/23/2019 49442- Debride <25 sq cm 08/17/2017 79791-SAPM SKIN LESIONS, OVER 4 08/17/20 17 62857-LXNI SKIN LESIONS, OVER 4 02/17/20 17 83105-XNZV SKIN LESIONS, OVER 4 05/18/20 17 50069-JYBU SKIN LESIONS, OVER 4 02/06/20 18 88915-UHGX SKIN LESIONS, OVER 4 02/14/20 19 43642-PECK SKIN LESIONS, OVER 4 09/13/20 18 17293-GKXR SKIN LESIONS, OVER 4 06/27/20 18 09348-KLNP SKIN LESIONS, OVER 4 04/16/20 18 65037-CFBN SKIN LESIONS, OVER 4 05/23/20 19 07330-PKNO SKIN LESIONS, OVER 4 11/16/20 17 13087- Biopsy of skin lesion 11/16/2017 Insurance Providers Payer Name Payer Address Payer Phone Subscriber Number Group Number Insured Name Patient Relationship to Insured Coverage Start Date Coverage End Date Medicare National [employer] [address] [place] [address] [id number] Chuy Noble Self - patient is the insured 8 Medical (General) History Medical History History ICD Code Cholesterol Diabetic Gallstones Headaches Hypertension ulcer Varicose veins Surgical History Surgery Date(Month/Year) gall stones Hospitalization History Reason Date(Month/Year) [facility] [place] care ulcer right foot 02/02/20 17 [facility] 01/22/2017 [facility] Right foot ulcerartion 08/10/17 [facility] foot issues 12/2017
--- OUTSIDE RECORDS SUMMARY | 2025-07-07 13:31 | XMS_ITS | Patient Health Record ---
Author Organization Jake Rivera III, MD Address [address] [facility] [place] [address] Care Team Providers Care Figure Skater Name Role Phone Jacob PARK, Eleazar Primary Care Provide r Unavailable Jake Rivera Unavailable [phone] Allergies No Known Allergies Reason For Referral [...] Problem Type II diabetes mellitus without complication (413284924) Diabetes (E11.9) Active confirmed Problem Type II diabetes mellitus without complication (960504185) Diabetes (E11.9) Active confirmed He has been compliant with all of his medications. He has the medications after discharge from the hospital. No change in his regimen was needed. Problem Hypertension (81612426) Hypertension (I10) Active confirmed Problem Hypertension (00527204) Hypertension (I10) Active confirmed His blood pressure is stable at 122/74. No change in his regimen as needed. Problem 396597250 Mixed hyperlipidemia (E78.2) Active confirmed He was continued on current medications. His lipids will be followed by primary care at [facility]. Problem 768926722 Obesity (BMI 30-39.9) (E66.9) Active confirmed We have discussed diet and nutrition. I recommended he lose weight and a rate of 1/2 pound per week for diet restricted in fact calories and sodium combine was regular exercise. Problem High cholesterol (49821717) High cholesterol (E78.00) Active confirmed Problem 60148604 Multiple subsegmental pulmonary emboli without acute cor pulmonale (I26.94) Active confirmed History of symptoms today of cough or chest pain or hemoptysis. Plan Of Treatment No Information Insurance Providers Payer Name Payer Address Payer Phone Subscriber Number Group Number Insured Name Patient Relationship to Insured Coverage Start Date Coverage End Date MEDICARE NGS [address] [place] [phone] [id number] Chuy Corley Self - patient is the insured Medical (General) History Medical History History ICD Code Diabetes E11.9 Hypertension I10 Hyperlipidemia DVT with pulmonary embolism June 2021 Surgical History Surgery Date(Month/Year) hernia 2010 Hospitalization History Reason Date(Month/Year) DVT 07/03/21 Pulmonary emboli 07/03/21
== END 2025-07-07 13:22 | disposition home or self-care (01) ==
LOC: HO.US 13:21
PROVIDERS: PCP Internal Medicine; Visit Provider Internal Medicine
DX: M79.89 Other specified soft tissue disorders (principal)
CPT/HCPCS: 93971

== ENCOUNTER → 2025-07-07 13:46 | Outpatient (BNV) | payer MEDICARE, MEDICAID, SELFPAY | PROVIDERS: PCP Internal Medicine; Visit Provider Radiology Diagnostic Radiology | DX: R22.41 Localized swelling, mass and lump, right lower limb (principal) | CPT/HCPCS: 93971 ==

== ENCOUNTER 2025-07-24 12:55 | Outpatient (RCR) | payer MEDICARE, MEDICAID, SELFPAY | END 2025-09-29 16:06 | disposition home or self-care (01) | LOC: HO.WCC 12:55 | PROVIDERS: PCP Internal Medicine; Visit Provider Surgery Surgical Oncology | DX: E11.622 Type 2 diabetes mellitus with other skin ulcer (principal); I87.331 Chronic venous hypertension (idiopathic) with ulcer and inflammation of right lower extremity; L97.212 Non-pressure chronic ulcer of right calf with fat layer exposed; E11.51 Type 2 diabetes mellitus with diabetic peripheral angiopathy without gangrene; Z79.84 Long term (current) use of oral hypoglycemic drugs | CPT/HCPCS: 97597; 99213 ==